=== PATIENT | male | born 1945 | race Caucasian/White ===

== ENCOUNTER 2019-12-19 03:53 | Emergency (ER) | payer OTHER, SELFPAY ==
[2019-12-19 03:53] VITALS: BP 137/79; PULSE 69; RESP 20; TEMP 36.7; O2SAT 98
--- NOTE | 2019-12-19 03:59 | ED.EPISTAXIS ---
HPI - Epistaxis General Chief complaint: Epistaxis Stated complaint: NOSE BLEED Source: patient Mode of arrival: EMS Limitations: no limitations History of Present Illness HPI Narrative: 74 y.o. with hypertension developed bleeding from the right side of his nose at 1 AM after picking at it. Bleeding continued for the next 3 hours. Pt used numerous tissues and paper towels stuffed in the right nostril. He did not pinch the nose. His last nosebleed was over 6 years ago. There was a short period where he felt lighheaded. He denies bruising. Related Data Home Medications Medication Instructions Recorded Confirmed aspirin 325 mg PO DAILY 12/19/19 12/19/19 lisinopril 10 mg PO DAILY 12/19/19 12/19/19 metoprolol tartrate 25 mg PO DAILY 12/19/19 12/19/19 omeprazole 40 mg PO DAILY 12/19/19 12/19/19 potassium chloride 10 meq PO DAILY 12/19/19 12/19/19 simvastatin 10 mg PO HS 12/19/19 12/19/19 Allergies Allergy/AdvReac Type Severity Reaction Status Date / Time No Known Allergies Allergy Verified 12/19/19 04:03 Review of Systems Constitutional: Constitutional: Reports no additional constitutional complaints ENT: Comments: He hacked up blood on several occasions. Cardiovascular: Cardiovascular: Denies chest pain and Denies rapid heart rate Respiratory: Respiratory: Denies dyspnea Gastrointestinal: Gastrointestinal: Denies nausea and Denies vomiting Hematologic/Lymphatic: Hematologic/Lymphatic: Denies easy bruising PMFSH Past Medical History Medical History (Updated 12/19/19 @ 04:58 by Gagan Hightower MD) GERD (gastroesophageal reflux disease) Hyperlipidemia Hypertension PTSD (post-traumatic stress disorder) Surgical History Surgical History (Updated 12/19/19 @ 04:59 by Gagan Hightower MD) History of radiofrequency ablation procedure for cardiac arrhythmia Hx of cholecystectomy Social History Social History (Updated 12/19/19 @ 04:59 by Gagan Hightower MD) Smoking status: Current every day smoker Tobacco type: pipe Exam Narrative: Exam Narrative: Brought on by ambulance with tissue in his right nostril. There is a small amount of blood on the tissue. Hard of hearing. Const: General: no acute distress and alert Orientation/consciousness: patient oriented x3 HENMT: Other: No active bleeding. Right anterior septum has a small, linear red scratch which is not bleeding. No blood or clot in the nose. No posterior oropharyngeal blood. Neck: Neck: no lymphadenopathy Resp: Auscultation: clear to auscultation bilaterally Cardio: Rate: regular rate Rhythm: regular rhythm Heart sounds: no murmurs Skin: Other: Warm and dry. Limited exam of back, chest and arms without ecchymosis. Neuro: General: patient oriented x3 Course Course Emergency Course: Observed in the E.D for an hour. No bleeding. No orthostatic changes. No lightheadedness. Results of CBC reviewed with patient. Vital Signs Vital signs: Vital Signs Temperature 36.7 C 12/19/19 03:53 Pulse Rate 69 12/19/19 03:53 Respiratory Rate 20 12/19/19 03:53 Blood Pressure 137/79 12/19/19 03:53 Pulse Oximetry 98 12/19/19 03:53 Temperature 36.7 C 12/19/19 03:53 Pulse Rate 62 12/19/19 04:26 Respiratory Rate 20 12/19/19 03:53 Blood Pressure 124/76 12/19/19 04:26 Pulse Oximetry 98 12/19/19 03:53 MDM - Epistaxis Lab Data Attestation: I reviewed the patient's lab results. Lab results narrative: no anemia Result diagrams: 12/19/19 04:31 Labs: Lab Results 12/19/19 Range/Units 04:31 WBC 7.6 (4.8-10.8) K/mm3 RBC 4.06 L (4.70-6.10) M/mm3 Hgb 14.3 (12.4-15.3) g/dL Hct 38.8 (37.0-46.0) % MCV 95.6 (78.0-102.0) fL MCH 35.2 H (27.0-31.0) pg MCHC 36.9 H (32.0-36.0) g/dL RDW 11.2 L (11.6-14.4) % Plt Count 171 (150-420) K/mm3 MPV 9.1 (8.7-11.0) fl Discharge Plan Discharge Clinical Impression: Acute anterior epistaxis Patient Disp
[2019-12-19 04:23] VITALS: BP 137/79; PULSE 69
[2019-12-19 04:24] VITALS: BP 144/81; PULSE 67
[2019-12-19 04:26] VITALS: BP 124/76; PULSE 62
[2019-12-19 04:36] LABS: Hematocrit 38.8 % (37.0-46.0); Hemoglobin 14.3 g/dL (12.4-15.3); Mean Corpuscular HGB Conc 36.9 g/dL (32.0-36.0); Mean Corpuscular Hemoglobin 35.2 pg (27.0-31.0); Mean Corpuscular Volume 95.6 fL (78.0-102.0); Mean Platelet Volume 9.1 fl (8.7-11.0); Platelet Count Result 171 K/mm3 (150-420); Red Blood Count 4.06 M/mm3 (4.70-6.10); Red Cell Distribution Width 11.2 % (11.6-14.4); White Blood Count 7.6 K/mm3 (4.8-10.8)
[2019-12-19 04:53] VITALS: BP 134/78; PULSE 69; RESP 20; TEMP 37.1; O2SAT 98
--- NOTE | 2019-12-19 04:55 | PC.NURSE ---
PT TO BE DISCHARGED. WILL BE AWAITING DAYLIGHT TO CALL SISTER FOR A RIDE HOME.
== END 2019-12-19 04:59 | disposition home or self-care (01) ==
PROVIDERS: Emergency Provider Family Medicine
DX: R04.0 Epistaxis (principal); K21.9 Gastro-esophageal reflux disease without esophagitis; E78.5 Hyperlipidemia, unspecified; I10 Essential (primary) hypertension; F17.200 Nicotine dependence, unspecified, uncomplicated
CPT/HCPCS: 36415; 85027; 99283

== ENCOUNTER 2020-10-26 02:48 | Emergency (ER) | payer OTHER, SELFPAY ==
[2020-10-26 03:11] VITALS: BP 139/83; PULSE 69; RESP 20; TEMP 36.8; O2SAT 98
--- NOTE | 2020-10-26 03:18 | ECG_ITS ---
Measurements Intervals [place] Rate: 63 P: 71 NH: 201 QRS: -34 QRSD: 79 T: 64 QT: 372 QTc: 383 Interpretive Statements SINUS RHYTHM LEFT AXIS DEVIATION BORDERLINE AV CONDUCTION DELAY BORDERLINE ST-T WAVE ABNORMALITY- ANTEROLATERAL LEADS BASELINE ARTIFACT- I, II, III, AVL, AVF BORDERLINE ECG Electronically Signed On 10-26-2020 8:05:05 [employer] WORK[employer] by Royce Oliver D.O.
[2020-10-26] MEDS: PANTOPRAZOLE SODIUM IV 40 MG VIAL IV PUSH (03:26)
[2020-10-26] MEDS: MAG HYDROX/ALUMINUM HYD/SIMETH 30 ML, PHENobarb/HYOSCY/ATROPINE/SCOP 32.4 MG, LIDOCAINE... PO (03:26)
--- NOTE | 2020-10-26 03:31 | ED.GENADULT ---
HPI - General Adult General Chief complaint: Abdominal Pain Stated complaint: Heartburn Source: patient Mode of arrival: ambulatory Limitations: no limitations History of Present Illness HPI narrative: This is a 75-year-old patient with a history of chronic reflux disease with some episodes of heartburn has been having increasing heartburn [facility], but the heartburn has persisted and he took his 3rd 1 and had no relief and currently epigastric burning with no fever chills no chest pain no chest tightness no radiation of his heartburn discomfort no shortness of breath no fever chills no nausea vomiting. Onset (ago): day(s) Location: abdomen Radiation: abdomen Severity: moderate Severity scale (1-10): 6 Quality: constant Pain Consistency: constant Related Data Home Medications Medication Instructions Recorded Confirmed aspirin 325 mg PO DAILY 12/19/19 08/02/20 lisinopril 10 mg PO DAILY 12/19/19 08/02/20 metoprolol tartrate 25 mg PO DAILY 12/19/19 08/02/20 omeprazole 40 mg PO DAILY 12/19/19 08/02/20 potassium chloride 10 meq PO DAILY 12/19/19 08/02/20 simvastatin 10 mg PO HS 12/19/19 08/02/20 Allergies Allergy/AdvReac Type Severity Reaction Status Date / Time No Known Allergies Allergy Verified 09/12/20 14:27 Review of Systems Review of Systems: All systems reviewed & are unremarkable except as noted in HPI and below PMFSH Past Medical History Medical History GERD (gastroesophageal reflux disease) Hordeolum externum left lower eyelid Hyperlipidemia Hypertension PTSD (post-traumatic stress disorder) Surgical History Surgical History History of radiofrequency ablation procedure for cardiac arrhythmia Hx of cholecystectomy Social History Social History Smoking status: Current every day smoker Tobacco type: pipe Alcohol intake: current Substance use: never Substance use type: does not use Exam Const: General: no acute distress Orientation/consciousness: patient oriented x3 HENMT: Head: normal to inspection Eyes: Conjunctivae: conjunctivae normal Pupils: Equal, round and reactive pupils present Neck: Neck: normal visual inspection Chest: Chest palpation & inspection: normal inspection of the chest Resp: Effort & Inspection: normal respiratory effort Cardio: Rate: regular rate Rhythm: regular rhythm GI: GI Palp: Yes Soft to palpation and Yes Tenderness to palpation present (GI) ( Epigastric tenderness) : Testes: Testes normal Skin: General skin exam: normal color Rashes: no rashes Neuro: General: patient oriented x3, moves all extremities, no meningeal signs and no focal motor deficits Extrem: General: normal to inspection and no pedal edema Psych: Mental Status: mental status grossly normal Course Course Emergency Course: patient receive IV Protonix and GI cocktail and after reassessment is markedly improved, will send Carafate to his pharmacy and advised to follow-up with his primary care physician at the [facility] as soon as possible for further evaluation and possible endoscopy. Vital Signs Vital signs: Vital Signs Temperature 36.8 C 10/26/20 03:11 Pulse Rate 69 10/26/20 03:11 Respiratory Rate 20 10/26/20 03:11 Blood Pressure 139/83 10/26/20 03:11 Pulse Oximetry 98 10/26/20 03:11 Temperature 36.8 C 10/26/20 03:11 Pulse Rate 69 10/26/20 03:11 Respiratory Rate 20 10/26/20 03:11 Blood Pressure 139/83 10/26/20 03:11 Pulse Oximetry 98 10/26/20 03:11 Medical Decision Making Vital Signs Vital Signs: Vital Signs Temperature 36.8 C 10/26/20 03:11 Pulse Rate 69 10/26/20 03:11 Respiratory Rate 20 10/26/20 03:11 Blood Pressure 139/83 10/26/20 03:11 Pulse Oximetry 98 10/26/20 03:11 Temperature 36.8 C
[2020-10-26 03:36] VITALS: BP 137/87; PULSE 84; RESP 18; TEMP 36.9; O2SAT 97
== END 2020-10-26 03:42 | disposition home or self-care (01) ==
PROVIDERS: Emergency Provider Emergency Medicine; PCP Family Medicine
DX: K21.9 Gastro-esophageal reflux disease without esophagitis (principal); E78.5 Hyperlipidemia, unspecified; I10 Essential (primary) hypertension; F43.10 Post-traumatic stress disorder, unspecified; H00.015 Hordeolum externum left lower eyelid; Z90.49 Acquired absence of other specified parts of digestive tract; F17.290 Nicotine dependence, other tobacco product, uncomplicated
CPT/HCPCS: 93005; 96374; 99283; 99284; A9270; C9113

== ENCOUNTER 2020-11-24 16:12 | Emergency (ER) | payer OTHER, SELFPAY ==
[2020-11-24 16:26] VITALS: BP 118/80; PULSE 71; RESP 20; TEMP 36.7; O2SAT 98
[2020-11-24] MEDS: PANTOPRAZOLE 40 MG TABLET PO (16:40)
[2020-11-24] MEDS: MAG HYDROX/ALUMINUM HYD/SIMETH 30 ML, PHENobarb/HYOSCY/ATROPINE/SCOP 32.4 MG, LIDOCAINE... PO (16:40)
--- NOTE | 2020-11-24 16:54 | ED.ABDPAIN ---
HPI - Abdominal Pain General Chief Complaint: Unspecified Stated Complaint: ACID REFLUX Source: patient Mode of arrival: ambulatory Limitations: no limitations History of Present Illness HPI narrative: this is a 75-year-old gentleman with a history of GERD with epigastric burning was seen approximately 3 weeks ago in the emergency department was given a GI cocktail and sent home with proton pump inhibitors had schedule appointment to see a GI doctor for a endoscopy but epic be a and is currently scheduled for an appointment. Patient is having some epigastric burning and has ran out of his current proton pump inhibitors. There is no chest pain no shortness of breath no fever or chills and no no flank pain no dysuria MD elicited complaint: abdominal pain ( Epigastric burning) Onset (ago): week(s) Pain Consistency: constant Location: epigastric Severity: moderate Quality: burning Radiation: none Migration to: no migration Exacerbating factors: nothing Relieving factors: nothing Related Data Home Medications Medication Instructions Recorded Confirmed aspirin 325 mg PO DAILY 12/19/19 11/24/20 lisinopril 10 mg PO DAILY 12/19/19 11/24/20 metoprolol tartrate 12.5 mg PO DAILY 12/19/19 11/24/20 omeprazole 40 mg PO HS 12/19/19 11/24/20 potassium chloride 10 meq PO DAILY 12/19/19 11/24/20 simvastatin 10 mg PO HS 12/19/19 11/24/20 Allergies Allergy/AdvReac Type Severity Reaction Status Date / Time No Known Allergies Allergy Verified 11/24/20 16:33 Review of Systems Review of Systems: All systems reviewed & are unremarkable except as noted in HPI and below PMFSH Past Medical History Medical History GERD (gastroesophageal reflux disease) Hordeolum externum left lower eyelid Hyperlipidemia Hypertension PTSD (post-traumatic stress disorder) Surgical History Surgical History History of radiofrequency ablation procedure for cardiac arrhythmia Hx of cholecystectomy Social History Social History Smoking status: Current every day smoker Tobacco type: pipe Alcohol intake: current Substance use: never Substance use type: does not use Gender identity (if verbalized by the patient): Male Exam Const: General: no acute distress Orientation/consciousness: patient oriented x3 HENMT: Head: normal to inspection Eyes: Pupils: Equal, round and reactive pupils present EOM: EOMs intact bilaterally Neck: Neck: normal visual inspection, no lymphadenopathy and no meningeal signs Chest: Chest palpation & inspection: normal inspection of the chest Resp: Effort & Inspection: normal respiratory effort Auscultation: clear to auscultation bilaterally Cardio: Rate: regular rate Rhythm: regular rhythm GI: GI Palp: Yes Soft to palpation and Yes Tenderness to palpation present (GI) ( epigastric) Course Course Emergency Course: patient received a GI cocktail and a dose of Protonix p.o. 40 mg, advised to keep his follow-up appointment for his [facility] and to take medicine as prescribed. Vital Signs Vital signs: Vital Signs Temperature 36.7 C 11/24/20 16:26 Pulse Rate 71 11/24/20 16:26 Respiratory Rate 20 11/24/20 16:26 Blood Pressure 118/80 11/24/20 16:26 Pulse Oximetry 98 11/24/20 16:26 Temperature 36.7 C 11/24/20 16:26 Pulse Rate 71 11/24/20 16:26 Respiratory Rate 20 11/24/20 16:26 Blood Pressure 118/80 11/24/20 16:26 Pulse Oximetry 98 11/24/20 16:26 Critical Care Time Critical Care Time Critical Care Time: No Discharge Plan Discharge Clinical Impression: GERD (gastroesophageal reflux disease) Qualifiers: Esophagitis presence: without esophagitis Qualified Code(s): K21.9 - Gastro-esophageal reflux disease without esophagitis Patient Disposition: Home, Self-Care Condition: Stable Instructi
[2020-11-24 17:17] VITALS: BP 100/66; PULSE 69; RESP 20; TEMP 36.7; O2SAT 98
== END 2020-11-24 17:21 | disposition home or self-care (01) ==
PROVIDERS: Emergency Provider Emergency Medicine; PCP Family Medicine
DX: K21.9 Gastro-esophageal reflux disease without esophagitis (principal)
CPT/HCPCS: 99283; A9270

== ENCOUNTER 2021-02-25 12:23 | Emergency (ER) | payer OTHER, SELFPAY ==
[2021-02-25 12:25] VITALS: BP 119/81; PULSE 70; RESP 20; TEMP 36.9; O2SAT 96
--- NOTE | 2021-02-25 12:45 | ED.ABDPAIN ---
HPI - Abdominal Pain General Stated Complaint: HERNIA Source: patient Mode of arrival: ambulatory Limitations: no limitations History of Present Illness HPI narrative: this is a 76-year-old male with a history of hiatal hernia that presents today after he had a sensation of having a few bites of hamburger and is getting stuck in the esophagus, currently doing well does have some reflux burning sensation with no food stuck in his esophagus sensation. Patient does have a history of hiatal hernia and he has some seen his primary care and and his GI doctor approximately 2 years ago. Currently there is no chest pain no shortness of breath no abdominal pain does have a burning sensation in the epigastric area, no fever chills no nausea vomiting no diarrhea constipation. MD elicited complaint: abdominal pain Pertinent past history: other ( hiatal hernia) Onset (ago): hour(s) Pain Consistency: intermittent Location: epigastric ( sensation of food getting stuck) Severity: mild Quality: fullness and burning Radiation: none Migration to: no migration Exacerbating factors: eating Relieving factors: nothing Related Data Home Medications Medication Instructions Recorded Confirmed aspirin 325 mg PO DAILY 12/19/19 11/24/20 lisinopril 10 mg PO DAILY 12/19/19 02/25/21 metoprolol tartrate 12.5 mg PO DAILY 12/19/19 02/25/21 omeprazole 40 mg PO BID 12/19/19 02/25/21 potassium chloride 10 meq PO DAILY 12/19/19 02/25/21 simvastatin 10 mg PO HS 12/19/19 02/25/21 Allergies Allergy/AdvReac Type Severity Reaction Status Date / Time No Known Allergies Allergy Verified 11/24/20 16:33 Review of Systems Review of Systems: All systems reviewed & are unremarkable except as noted in HPI and below PMFSH Past Medical History Medical History GERD (gastroesophageal reflux disease) Hordeolum externum left lower eyelid Hyperlipidemia Hypertension PTSD (post-traumatic stress disorder) Surgical History Surgical History History of radiofrequency ablation procedure for cardiac arrhythmia Hx of cholecystectomy Social History Social History Smoking status: Current every day smoker Tobacco type: pipe Alcohol intake: current Substance use: never Substance use type: does not use Gender identity (if verbalized by the patient): Male Exam Const: General: no acute distress and alert Orientation/consciousness: patient oriented x3 HENMT: Head: normal to inspection Eyes: Conjunctivae: conjunctivae normal Pupils: Equal, round and reactive pupils present Chest: Chest palpation & inspection: normal inspection of the chest Resp: Effort & Inspection: normal respiratory effort Auscultation: clear to auscultation bilaterally Cardio: Rate: regular rate Rhythm: regular rhythm GI: GI Palp: Yes Soft to palpation Percussion: Yes other ( Epigastric tenderness with palpation) : Testes: Testes normal Back/Spine/Pelvis: Back: no CVA tenderness Skin: General skin exam: normal color Rashes: no rashes Extrem: General: normal to inspection and no pedal edema Psych: Mental Status: mental status grossly normal Affect: normal affect Course Course Emergency Course: after reassessment the symptoms have resolved, patient still has some epigastric burning and received GI cocktail. Critical Care Time Critical Care Time Critical Care Time: No Discharge Plan Discharge Clinical Impression: Hiatal hernia Acid reflux Qualifiers: Esophagitis presence: without esophagitis Qualified Code(s): K21.9 - Gastro-esophageal reflux disease without esophagitis Patient Disposition: Home, Self-Care Condition: Stable Instructions: Antibiotic Form, GERD (Gastroesophageal Reflux Disease) (ED) Additional Instructions: advised patient to follow with some GI within the next 2 to
[2021-02-25] MEDS: MAG HYDROX/ALUMINUM HYD/SIMETH 30 ML, PHENobarb/HYOSCY/ATROPINE/SCOP 32.4 MG, LIDOCAINE... PO (12:47)
[2021-02-25 13:04] VITALS: BP 119/81; PULSE 70; RESP 20; TEMP 36.9; O2SAT 96
== END 2021-02-25 13:10 | disposition home or self-care (01) ==
PROVIDERS: Emergency Provider Emergency Medicine
DX: K21.9 Gastro-esophageal reflux disease without esophagitis (principal); E78.5 Hyperlipidemia, unspecified; I10 Essential (primary) hypertension; F17.200 Nicotine dependence, unspecified, uncomplicated
CPT/HCPCS: 99282; 99283; A9270

== ENCOUNTER 2021-07-19 12:37 | Outpatient (NON) | payer OTHER, SELFPAY | END 2021-07-19 12:38 | disposition home or self-care (01) | LOC: CHSLAB 12:39 | PROVIDERS: Visit Provider Nurse Practitioner Family | DX: R30.0 Dysuria (principal) | CPT/HCPCS: 87086 ==

== ENCOUNTER 2021-07-23 19:09 | Emergency (ER) | payer OTHER, SELFPAY ==
[2021-07-23 22:03] VITALS: BP 131/72; PULSE 66; RESP 18; TEMP 36.4; O2SAT 99
[2021-07-23 22:44] LABS: Add Urine Microscopic? YES; Appearance Urine Clear (Clear); Bilirubin Urine Negative (Negative); Blood Urine Negative (Negative); Color Urine Dark Yellow (Yellow); Glucose Urine UA Negative (Negative); Ketones Urine 1+ (Negative); Leukocyte Esterase Ur Negative (Negative); Nitrate Urine Negative (Negative); Protein Urine Negative (Negative); Urobilinogen Urine 0.2 mg/dL (0.2-1.0); pH Urine 6.5 (5.0-8.0)
[2021-07-23 22:48] LABS: Bacteria Urine Trace /hpf; RBC Urine 0-2 /hpf (0-2); WBC Urine 0-3 /hpf (0-3)
--- NOTE | 2021-07-23 23:01 | ED.ABDPAIN ---
HPI - Abdominal Pain General Chief Complaint: Urogenital-Male Stated Complaint: Bladder Inf Time Seen by Provider: 07/23/21 19:11 Source: patient and RN notes reviewed Mode of arrival: ambulatory Limitations: no limitations History of Present Illness HPI narrative: mild persistent dysuria Pertinent past history: past UTI Pain Consistency: intermittent Location: other (dysuria) Severity: mild Pain scale (0-10): 1 Quality: burning Radiation: none Migration to: no migration Exacerbating factors: nothing Relieving factors: medication Associated symptoms: denies other symptoms Related Data Home Medications Medication Instructions Recorded Confirmed lisinopril 10 mg PO DAILY 12/19/19 07/23/21 metoprolol tartrate 12.5 mg PO DAILY 12/19/19 07/23/21 omeprazole 40 mg PO BID 12/19/19 07/23/21 potassium chloride 10 meq PO DAILY 12/19/19 07/23/21 simvastatin 10 mg PO HS 12/19/19 07/23/21 Allergies Allergy/AdvReac Type Severity Reaction Status Date / Time No Known Allergies Allergy Verified 07/23/21 22:00 Review of Systems Review of Systems: All systems reviewed & are unremarkable except as noted in HPI and below Genitourinary: Genitourinary: Reports dysuria PMFSH Past Medical History Medical History GERD (gastroesophageal reflux disease) Hordeolum externum left lower eyelid Hyperlipidemia Hypertension PTSD (post-traumatic stress disorder) Surgical History Surgical History History of radiofrequency ablation procedure for cardiac arrhythmia Hx of cholecystectomy Social History Social History Smoking status: Current every day smoker Tobacco type: pipe Alcohol intake: current Alcohol use details: drinks red wine daily Substance use: never Substance use type: does not use Gender identity (if verbalized by the patient): Male Exam Const: General: no acute distress and alert Nutritional Appearance: well nourished Orientation/consciousness: patient oriented x3 Limitations: no limitations HENMT: Head: normal to inspection Ears: external ears normal and TM's normal bilaterally General nose exam: Normal external nose present and Normal nares present Mouth: Yes lip normal and Yes moist mucous membranes Teeth and gingiva: dentition normal Eyes: Conjunctivae: conjunctivae normal Pupils: Equal, round and reactive pupils present EOM: EOMs intact bilaterally Neck: Neck: normal visual inspection Chest: Chest palpation & inspection: normal inspection of the chest Resp: Effort & Inspection: normal respiratory effort Auscultation: clear to auscultation bilaterally Cardio: Rate: regular rate Rhythm: regular rhythm GI: GI Palp: Yes Soft to palpation and No Tenderness to palpation present (GI) Auscultation: normal bowel sounds : General: Yes bladder normal to palpation and Yes no CVA tenderness Male General Exam: Yes normal external exam Testes: Testes normal Back/Spine/Pelvis: Back: no CVA tenderness Skin: General skin exam: normal color Rashes: no rashes Neuro: General: patient oriented x3, moves all extremities, no meningeal signs, no focal motor deficits and CN's II-XI intact bilaterally Extrem: General: normal to inspection and no pedal edema Psych: Appearance: grossly normal and well kempt Mental Status: mental status grossly normal Affect: normal affect Thought content: Yes Normal thought content present Course Course Emergency Course: Stable pain-free patient. Reevaluation(s) Date: 07/23/21 Time: 22:25 Vital Signs Vital signs: Vital Signs Temperature 36.4 C 07/23/21 22:03 Pulse Rate 66 07/23/21 22:03 Respiratory Rate 18 07/23/21 22:03 Blood Pressure 131/72 07/23/21 22:03 Pulse Oximetry 99 07/23/21 22:03 Temperature 36.4 C 07/23/21 22:03 Pulse Rate 66 07/23/21 23:28 Respirat
[2021-07-23 23:28] VITALS: BP 121/73; PULSE 66; RESP 16; O2SAT 98
== END 2021-07-23 23:30 | disposition home or self-care (01) ==
PROVIDERS: Emergency Provider Emergency Medicine; PCP Nurse Practitioner Family
DX: N39.0 Urinary tract infection, site not specified (principal)
CPT/HCPCS: 81001; 99283

== ENCOUNTER 2021-08-01 13:27 | Emergency (ER) | payer OTHER, SELFPAY ==
[2021-08-01 13:40] VITALS: BP 104/67; PULSE 73; RESP 14; TEMP 36.4; O2SAT 96
--- NOTE | 2021-08-01 14:05 | ED.GENADULT ---
HPI - General Adult General Chief complaint: Unspecified Stated complaint: has a hiatal hernia has a hard time breathing/eati Source: patient Mode of arrival: ambulatory History of Present Illness HPI narrative: Patient with a history of GERD/reflux disease presents today having difficulty with swallowing water with some epigastric discomfort with no abdominal pain no chest pain no shortness of breath. Currently there is no fever chills can swallow solids as well as liquids but has more difficult time with some with swallowing that neutral. Onset (ago): hour(s) Related Data Home Medications Medication Instructions Recorded Confirmed lisinopril 10 mg PO DAILY 12/19/19 07/23/21 metoprolol tartrate 12.5 mg PO DAILY 12/19/19 07/23/21 omeprazole 40 mg PO BID 12/19/19 07/23/21 potassium chloride 10 meq PO DAILY 12/19/19 07/23/21 simvastatin 10 mg PO HS 12/19/19 07/23/21 Allergies Allergy/AdvReac Type Severity Reaction Status Date / Time No Known Allergies Allergy Verified 07/23/21 22:00 Review of Systems Review of Systems: All systems reviewed & are unremarkable except as noted in HPI and below PMFSH Past Medical History Medical History GERD (gastroesophageal reflux disease) Hordeolum externum left lower eyelid Hyperlipidemia Hypertension PTSD (post-traumatic stress disorder) Surgical History Surgical History History of radiofrequency ablation procedure for cardiac arrhythmia Hx of cholecystectomy Social History Social History Smoking status: Current every day smoker Tobacco type: pipe Alcohol intake: current Alcohol use details: drinks red wine daily Substance use: never Substance use type: does not use Gender identity (if verbalized by the patient): Male Exam Const: General: cooperative and healthy appearing HENMT: Head: normal to inspection General nose exam: Normal external nose present Face and sinus: normal facial exam Mouth: Yes Normal oral and palatal mucosa present Teeth and gingiva: dentition normal Eyes: General: appearance normal, both eyes and all related structures Eyelids: eyelids normal Conjunctivae: conjunctivae normal Sclera: sclerae normal Pupils: Equal, round and reactive pupils present Neck: Neck: normal visual inspection Chest: Chest palpation & inspection: normal inspection of the chest and localized rib tenderness with anteroposterior compression Resp: Effort & Inspection: normal respiratory effort Cardio: Jugular venous distension: no JVD Palpation: normal PMI Rate: regular rate Rhythm: regular rhythm GI: Inspection: normal to inspection Percussion: Yes normal to percussion Auscultation: normal bowel sounds Back/Spine/Pelvis: Back: no CVA tenderness Skin: General skin exam: normal color and no rashes or lesions noted Neuro: General: oriented to person, oriented to place, oriented to time, patient oriented x3 and gait normal Psych: Appearance: grossly normal and well kempt Course Course Emergency Course: GI cocktail was given, and advised patient follow-up with his primary care physician for referral to GI. Critical Care Time Critical Care Time Critical Care Time: No Discharge Plan Discharge Clinical Impression: Hiatal hernia GERD (gastroesophageal reflux disease) Qualifiers: Esophagitis presence: esophagitis presence not specified Qualified Code(s): K21.9 - Gastro-esophageal reflux disease without esophagitis Dysphagia Qualifiers: Dysphagia type: unspecified Qualified Code(s): R13.10 - Dysphagia, unspecified Patient Disposition: Home, Self-Care Condition: Stable Instructions: Antibiotic Form, Dysphagia (ED), Esophageal Spasm (ED) Additional Instructions: advised to continue current medication, and call primary care physician at the [facility] for referral to
[2021-08-01] MEDS: MAG HYDROX/ALUMINUM HYD/SIMETH 30 ML, PHENobarb/HYOSCY/ATROPINE/SCOP 32.4 MG, LIDOCAINE... PO (14:26)
[2021-08-01 14:30] VITALS: BP 121/67; PULSE 70; RESP 14; O2SAT 96
== END 2021-08-01 14:45 | disposition home or self-care (01) ==
PROVIDERS: Emergency Provider Emergency Medicine; PCP Nurse Practitioner Family
DX: K44.9 Diaphragmatic hernia without obstruction or gangrene (principal); K21.9 Gastro-esophageal reflux disease without esophagitis; R13.10 Dysphagia, unspecified; E78.5 Hyperlipidemia, unspecified; I10 Essential (primary) hypertension; F17.200 Nicotine dependence, unspecified, uncomplicated
CPT/HCPCS: 99282; 99283; A9270

== ENCOUNTER 2021-08-16 08:33 | Emergency (ER) | payer OTHER, SELFPAY ==
[2021-08-16 08:42] VITALS: BP 114/73; PULSE 66; RESP 20; TEMP 36.2; O2SAT 98
--- NOTE | 2021-08-16 09:01 | ED.MALEGU ---
HPI - Male Genitourinary General Chief complaint: Urogenital-Male Stated complaint: urinary tract infection Time Seen by Provider: 08/16/21 09:01 Source: patient Mode of arrival: ambulatory Limitations: no limitations History of Present Illness HPI Narrative: 76-year-old man comes in today complaining of 1 week of burning in his penis. Patient states that he has had similar symptoms and been treated twice in the last month once with Macrobid and once with Keflex. He states the burning is not only when he urinates. He has had no blood in his urine, back pain, nausea, vomiting, fever, flank pain or abdominal pain. He states he had a similar episodes 4 years ago that went away after taking an antibiotic that he does not recall. He has had no new sexual partners. MD Complaint: other ( Penile burning) Onset (ago): week(s) (1) Duration: constant Location: penis Severity: moderate Quality: burning Relieving factors: none Exacerbating factors: none Associated symptoms: Reports denies other symptoms Related Data Sexually active: No Home Medications Medication Instructions Recorded Confirmed lisinopril 10 mg PO DAILY 12/19/19 08/16/21 metoprolol tartrate 12.5 mg PO DAILY 12/19/19 08/16/21 omeprazole 40 mg PO BID 12/19/19 08/16/21 potassium chloride 10 meq PO DAILY 12/19/19 08/16/21 simvastatin 10 mg PO HS 12/19/19 08/16/21 Allergies Allergy/AdvReac Type Severity Reaction Status Date / Time No Known Allergies Allergy Verified 08/16/21 08:46 Review of Systems Review of Systems: All systems reviewed & are unremarkable except as noted in HPI and below Constitutional: Constitutional: Denies chills and Denies fever(s) Respiratory: Respiratory: Denies cough and Denies dyspnea Gastrointestinal: Gastrointestinal: Denies abdominal pain, Denies nausea and Denies vomiting Genitourinary: Genitourinary: Reports as per HPI, Denies hematuria, Denies dysuria and Denies urinary frequency Musculoskeletal: Musculoskeletal: Denies back pain, Denies arthralgias and Denies joint swelling Integumentary/Breasts: Skin/Breast: Denies pruritus, Denies erythema and Denies rash Neurologic: Denies vertigo, Denies dizziness and Denies syncope [facility] Past Medical History Medical History GERD (gastroesophageal reflux disease) Hordeolum externum left lower eyelid Hyperlipidemia Hypertension PTSD (post-traumatic stress disorder) Surgical History Surgical History History of radiofrequency ablation procedure for cardiac arrhythmia Hx of cholecystectomy Social History Social History Smoking status: Current every day smoker Tobacco type: pipe Alcohol intake: current Alcohol use details: drinks red wine daily Substance use: never Substance use type: does not use Gender identity (if verbalized by the patient): Male Exam Const: General: no acute distress and alert Limitations: no limitations HENMT: Mouth: Yes moist mucous membranes Throat: posterior oropharynx normal Resp: Effort & Inspection: normal respiratory effort and not labored Auscultation: clear to auscultation bilaterally, no rales, no rhonchi and no wheezes Cardio: Rate: regular rate Rhythm: regular rhythm Heart sounds: no murmurs GI: GI Palp: Yes Soft to palpation, No Tenderness to palpation present (GI), No Guarding due to palpation present (GI) and No Hernia present Skin: General skin exam: normal color, no jaundice and no pallor Rashes: no rashes Neuro: General: patient oriented x3, moves all extremities and no focal motor deficits Speech: normal speech Gait exam (Neuro): Normal gait present Extrem: General: normal to inspection and no clubbing, cyanosis or edema Psych: Appearance: grossly normal and well kempt Mental Status: mental status grossly normal Affect: normal affect At
--- NOTE | 2021-08-16 09:01 | PC.NURSE ---
Pt attempted to urinate without success. Pt states he went before coming. RN provided pt with water.
--- NOTE | 2021-08-16 09:35 | PC.NURSE ---
Pt attempted to urinate x 2 still unable to go. Pt provided water. Pt states Man this is embarrasing RN informed pt that no need to stress we will get a sample soon and test for infection. Pt verbalized understanding.
[2021-08-16 10:37] LABS: Appearance Urine Clear (Clear); Bilirubin Urine 1+ (Negative); Blood Urine Negative (Negative); Glucose Urine UA Negative (Negative); Ketones Urine Trace (Negative); Leukocyte Esterase Ur Trace (Negative); Nitrate Urine Positive (Negative); Protein Urine Trace (Negative); pH Urine 7.5 (5.0-8.0)
[2021-08-16 10:44] LABS: Add Urine Microscopic? YES; Bacteria Urine 1+ /hpf; Color Urine Dark Orange (Yellow); Mucus Urine Few /lpf; RBC Urine None seen /hpf (0-2); Squamous Epithelial Cell Urine Few /hpf (Few); WBC Urine 0-3 /hpf (0-3)
[2021-08-16 11:07] VITALS: BP 117/69; PULSE 59; RESP 16; O2SAT 100
== END 2021-08-16 11:05 | disposition home or self-care (01) ==
PROVIDERS: Emergency Provider Emergency Medicine
DX: N39.0 Urinary tract infection, site not specified (principal); K21.9 Gastro-esophageal reflux disease without esophagitis; E78.5 Hyperlipidemia, unspecified; I10 Essential (primary) hypertension; F17.200 Nicotine dependence, unspecified, uncomplicated
CPT/HCPCS: 81001; 87086; 87088; 99283

== ENCOUNTER 2021-10-04 13:13 | Emergency (ER) | payer OTHER, SELFPAY ==
[2021-10-04 13:15] VITALS: BP 118/67; PULSE 74; RESP 20; O2SAT 97
--- NOTE | 2021-10-04 14:27 | PC.NURSE ---
water given to pt, unable to urinate
--- NOTE | 2021-10-04 15:25 | PC.NURSE ---
Pt still unable to urinate, pt has drank 240 x3.
[2021-10-04 15:49] LABS: Appearance Urine Clear (Clear); Bilirubin Urine Negative (Negative); Blood Urine Negative (Negative); Glucose Urine UA Trace (Negative); Ketones Urine Trace (Negative); Leukocyte Esterase Ur Negative (Negative); Nitrate Urine Positive (Negative); Protein Urine 1+ (Negative); Specific Grav Ur >= 1.030 (1.010-1.020)
[2021-10-04 15:56] LABS: Add Urine Microscopic? YES; Color Urine Dark Orange (Yellow); RBC Urine 0-2 /hpf (0-2); WBC Urine 0-3 /hpf (0-3)
[2021-10-04 15:57] LABS: Bacteria Urine Trace /hpf; Squamous Epithelial Cell Urine Rare /hpf (Few)
--- NOTE | 2021-10-04 15:59 | ED.MALEGU ---
HPI - Male Genitourinary General Chief complaint: Urogenital-Male Stated complaint: Possible UTI/ Osborne when urinating Time Seen by Provider: 10/04/21 13:15 Source: patient and RN notes reviewed Mode of arrival: ambulatory Limitations: no limitations History of Present Illness HPI Narrative: increasing dysuria Complaint: dysuria Onset (ago): day(s) (1) Duration: constant Location: penis Severity: mild Severity scale (1-10): 3 Quality: burning Relieving factors: none Exacerbating factors: none Context: other (none) Associated symptoms: Reports denies other symptoms Related Data Home Medications Medication Instructions Recorded Confirmed lisinopril 10 mg PO DAILY 12/19/19 10/04/21 metoprolol tartrate 12.5 mg PO DAILY 12/19/19 10/04/21 omeprazole 40 mg PO BID 12/19/19 10/04/21 potassium chloride 10 meq PO DAILY 12/19/19 10/04/21 simvastatin 10 mg PO HS 12/19/19 10/04/21 Allergies Allergy/AdvReac Type Severity Reaction Status Date / Time No Known Allergies Allergy Verified 08/16/21 08:46 Review of Systems Review of Systems: All systems reviewed & are unremarkable except as noted in HPI and below Genitourinary: Genitourinary: Reports dysuria PMFSH Past Medical History Medical History Dysuria GERD (gastroesophageal reflux disease) Hordeolum externum left lower eyelid Hyperlipidemia Hypertension PTSD (post-traumatic stress disorder) Surgical History Surgical History History of radiofrequency ablation procedure for cardiac arrhythmia Hx of cholecystectomy Social History Social History Smoking status: Current every day smoker Tobacco type: pipe Alcohol intake: current Alcohol use details: drinks red wine daily Substance use: never Substance use type: does not use Gender identity (if verbalized by the patient): Male Exam Const: General: cooperative, healthy appearing and well developed Nutritional Appearance: well nourished Orientation/consciousness: patient oriented x3 Limitations: no limitations HENMT: Head: normocephalic and atraumatic Ears: hearing grossly normal bilaterally, external ears normal, TM's normal bilaterally and EAC's normal General nose exam: Normal external nose present and Normal nares present Face and sinus: normal facial exam and sinuses nontender Mouth: Yes Normal oral and palatal mucosa present, Yes lip normal, Yes oropharynx normal and Yes moist mucous membranes Eyes: General: appearance normal, both eyes and all related structures Visual Roberts: normal visual roberts by confrontation Eyelids: eyelids normal Conjunctivae: conjunctivae normal Sclera: sclerae normal Cornea: corneas normal Pupils: Equal, round and reactive pupils present EOM: EOMs intact bilaterally Direct Ophthalmoscopy: normal light reflex Neck: Neck: full ROM and no lymphadenopathy Chest: Chest palpation & inspection: normal inspection of the chest Resp: Effort & Inspection: normal respiratory effort and able to speak in complete sentences Auscultation: clear to auscultation bilaterally Cardio: Jugular venous distension: no JVD Rate: regular rate Rhythm: regular rhythm Peripheral pulses: Peripheral pulses 2+ throughout GI: Inspection: normal to inspection GI Palp: No abdominal tenderness Auscultation: normal bowel sounds : General: Yes bladder normal to palpation and Yes no CVA tenderness Back/Spine/Pelvis: Back: no CVA tenderness Thoracic/Lumbar Spine: thoracic and lumbar spine normal to inspection and thoraco-lumbar ROM normal Skin: General skin exam: normal color and turgor normal Neuro: General: patient oriented x3, gait normal, no meningeal signs, no focal motor deficits and CN's II-XI intact bilaterally Cranial nerves: Yes CN's II-XII intact bilaterally, Yes Equal, round and reactive pupils present,
[2021-10-04 16:07] VITALS: BP 117/69; PULSE 76; RESP 20; TEMP 36.3; O2SAT 97
== END 2021-10-04 16:09 | disposition home or self-care (01) ==
PROVIDERS: Emergency Provider Emergency Medicine
DX: N39.0 Urinary tract infection, site not specified (principal); K21.9 Gastro-esophageal reflux disease without esophagitis; E78.5 Hyperlipidemia, unspecified; I10 Essential (primary) hypertension; F17.200 Nicotine dependence, unspecified, uncomplicated
CPT/HCPCS: 81001; 99283

== ENCOUNTER 2021-10-13 09:38 | Emergency (ER) | payer OTHER, SELFPAY ==
[2021-10-13 09:55] VITALS: BP 122/71; PULSE 68; RESP 16; TEMP 36.1; O2SAT 98
--- NOTE | 2021-10-13 10:00 | PC.NURSE ---
Urine taken to lab.
--- NOTE | 2021-10-13 10:07 | ED_ITS ---
HPI - Nausea/Vomiting/Diarrhea General Chief complaint: Nausea/Vomiting/Diarrhea Stated complaint: urinary infection/not feeling well Time Seen by Provider: 10/13/21 10:00 Related Data Home Medications Medication Instructions Recorded Confirmed lisinopril 10 mg PO DAILY 12/19/19 10/13/21 metoprolol tartrate 12.5 mg PO DAILY 12/19/19 10/13/21 omeprazole 40 mg PO BID 12/19/19 10/13/21 potassium chloride 10 meq PO DAILY 12/19/19 10/13/21 simvastatin 10 mg PO HS 12/19/19 10/13/21 Allergies Allergy/AdvReac Type Severity Reaction Status Date / Time No Known Allergies Allergy Verified 10/13/21 10:00 [facility] Past Medical History Medical History Dysuria GERD (gastroesophageal reflux disease) Hordeolum externum left lower eyelid Hyperlipidemia Hypertension PTSD (post-traumatic stress disorder) Surgical History Surgical History History of radiofrequency ablation procedure for cardiac arrhythmia Hx of cholecystectomy Social History Social History Smoking status: Current every day smoker Tobacco type: pipe Alcohol intake: current Alcohol use details: drinks red wine daily Substance use: never Substance use type: does not use Gender identity (if verbalized by the patient): Male Course Vital Signs Vital signs: Vital Signs Temperature 36.1 C L 10/13/21 09:55 Pulse Rate 68 10/13/21 09:55 Respiratory Rate 16 10/13/21 09:55 Blood Pressure 122/71 10/13/21 09:55 Pulse Oximetry 98 10/13/21 09:55 Temperature 36.1 C L 10/13/21 09:55 Pulse Rate 68 10/13/21 09:55 Respiratory Rate 16 10/13/21 09:55 Blood Pressure 122/71 10/13/21 09:55 Pulse Oximetry 98 10/13/21 09:55 Discharge Plan Discharge Prescriptions: No Action simvastatin 10 mg Tablet 10 mg PO HS RF: 0 potassium chloride 10 mEq Tablet Extended Release 10 meq PO DAILY RF: 0 lisinopril 10 mg Tablet 10 mg PO DAILY RF: 0 metoprolol tartrate 25 mg Tablet 12.5 mg PO DAILY RF: 0 omeprazole 40 mg PO BID RF: 0
[2021-10-13 10:11] LABS: Add Urine Microscopic? NO; Appearance Urine Clear (Clear); Bilirubin Urine Negative (Negative); Blood Urine Negative (Negative); Color Urine Yellow (Yellow); Glucose Urine UA Negative (Negative); Ketones Urine Negative (Negative); Leukocyte Esterase Ur Negative LEU/UL (Negative); Nitrate Urine Negative (Negative); Protein Urine Negative (Negative); Specific Grav Ur 1.015 (1.010-1.020); Urobilinogen Urine 0.2 mg/dL (0.2-1.0); pH Urine 7.5 (5.0-8.0)
--- NOTE | 2021-10-13 10:21 | ED.MALEGU ---
HPI - Male Genitourinary General Chief complaint: Nausea/Vomiting/Diarrhea Stated complaint: urinary infection/not feeling well Time Seen by Provider: 10/13/21 10:00 Source: patient and RN notes reviewed Mode of arrival: ambulatory Limitations: no limitations History of Present Illness Complaint: dysuria Onset (ago): week(s) (2) Duration: constant Location: penis Severity: moderate Quality: burning Exacerbating factors: urination Associated symptoms: Reports nausea/vomiting (nausea only) Related Data Sexually active: No Home Medications Medication Instructions Recorded Confirmed lisinopril 10 mg PO DAILY 12/19/19 10/13/21 metoprolol tartrate 12.5 mg PO DAILY 12/19/19 10/13/21 omeprazole 40 mg PO BID 12/19/19 10/13/21 potassium chloride 10 meq PO DAILY 12/19/19 10/13/21 simvastatin 10 mg PO HS 12/19/19 10/13/21 Allergies Allergy/AdvReac Type Severity Reaction Status Date / Time No Known Allergies Allergy Verified 10/13/21 10:00 Review of Systems Review of Systems: All systems reviewed & are unremarkable except as noted in HPI and below Constitutional: Constitutional: Denies chills and Denies fever(s) Genitourinary: Genitourinary: Denies penile discharge [facility] Past Medical History Medical History Dysuria GERD (gastroesophageal reflux disease) Hordeolum externum left lower eyelid Hyperlipidemia Hypertension PTSD (post-traumatic stress disorder) Surgical History Surgical History History of radiofrequency ablation procedure for cardiac arrhythmia Hx of cholecystectomy Social History Social History Smoking status: Current every day smoker Tobacco type: pipe Alcohol intake: current Alcohol use details: drinks red wine daily Substance use: never Substance use type: does not use Gender identity (if verbalized by the patient): Male Exam Const: General: healthy appearing, no acute distress and alert Orientation/consciousness: patient oriented x3 HENMT: Head: normal to inspection General nose exam: Normal external nose present Face and sinus: normal facial exam Eyes: Conjunctivae: conjunctivae normal Pupils: Equal, round and reactive pupils present EOM: EOMs intact bilaterally Neck: Neck: normal visual inspection Resp: Effort & Inspection: normal respiratory effort Auscultation: clear to auscultation bilaterally Cardio: Rate: regular rate Rhythm: regular rhythm GI: GI Palp: Yes Soft to palpation and No Tenderness to palpation present (GI) Auscultation: normal bowel sounds Back/Spine/Pelvis: Cervical Spine: cervical ROM normal Thoracic/Lumbar Spine: thoraco-lumbar ROM normal Skin: General skin exam: normal color Neuro: General: patient oriented x3, moves all extremities, no meningeal signs and no focal motor deficits Extrem: General: normal to inspection and no clubbing, cyanosis or edema Psych: Appearance: grossly normal and well kempt Mental Status: mental status grossly normal Affect: normal affect Attitude: cooperative Thought content: Yes Normal thought content present Course Vital Signs Vital signs: Vital Signs Temperature 36.1 C L 10/13/21 09:55 Pulse Rate 68 10/13/21 09:55 Respiratory Rate 16 10/13/21 09:55 Blood Pressure 122/71 10/13/21 09:55 Pulse Oximetry 98 10/13/21 09:55 Temperature 36.1 C L 10/13/21 09:55 Pulse Rate 68 10/13/21 09:55 Respiratory Rate 16 10/13/21 09:55 Blood Pressure 122/71 10/13/21 09:55 Pulse Oximetry 98 10/13/21 09:55 MDM - Male Genitourinary Lab Data Attestation: I reviewed the patient's lab results. Labs: Lab Results 10/13/21 Range/Units 10:09 Urine Color Yellow (Yellow) Urine Appearance Clear (Clear) Urine pH 7.5 (5.0-8.0) Ur Specific [place] 1.015 (1.010-1.020) Urine Protein Negative (Negative)
== END 2021-10-13 10:39 | disposition home or self-care (01) ==
PROVIDERS: Emergency Provider Emergency Medicine; PCP Nurse Practitioner Family
DX: N34.2 Other urethritis (principal)
CPT/HCPCS: 81003; 99283

== ENCOUNTER 2022-01-24 12:57 | Emergency (ER) | payer OTHER, SELFPAY ==
--- NOTE | ~2022-01-24 | CT_ITS ---
EXAMINATION: CT soft tiss neck [facility] DATE: 01/24/2022 14:44 INDICATION: Chronic difficulty swallowing. TECHNIQUE: Computed tomography (CT) of the neck, chest, and abdomen was performed without intravenous contrast. Automated exposure control and iterative reconstruction technique were employed. The dose- length product was 806.78 mGy-cm. COMPARISON: None FINDINGS: CT NECK: There are no pathologically enlarged lymph nodes. There is calcified atherosclerosis of the proximal internal carotid arteries. The pharynx and larynx are normal. There are likely changes of oc ular lens replacement surgeries. There is mucosal thickening in the paranasal sinuses. There is thick ening sclerosis of the cormier of left maxillary sinus, consistent with chronic sinusitis. There is mod erate cervical spondylosis. CT CHEST: There is mild dependent atelectasis bilaterally. No pleural effusion. There is left atrial enlargement of the heart. No pericardial effusion. There are coronary artery calcifications. There is mild bilateral gynecomastia. The esophagus is unremarkable. There is mild thoracic spondylosis. Ther e is mild chronic height loss of T6, T7, and T8 vertebral bodies. CT ABDOMEN: The liver and spleen are normal. There are changes of cholecystectomy. The pancreas, adre nal glands, and right kidney are normal. There is a 3.4 cm cyst in left kidney. There are parenchymal calcifications in left kidney with focal volume loss. There are no dilated loops of bowel. There are no pathologically enlarged lymph nodes. There is no free intraperitoneal fluid. There is mild lumbar spondylosis. IMPRESSION: 1. No etiology for the patient's symptoms. Reviewed, dictated and finalized at location A.
[2022-01-24 13:30] VITALS: BP 123/71; PULSE 65; RESP 20; TEMP 36.9; O2SAT 98
--- NOTE | 2022-01-24 13:46 | ECG_ITS ---
Measurements Intervals [place] Rate: 63 P: 58 VA: 197 QRS: -28 QRSD: 97 T: 34 QT: 411 QTc: 422 Interpretive Statements SINUS RHYTHM DELAYED PRECORDIAL R/S TRANSITION CONSIDER INFERIOR INFARCT, AGE INDETERMINATE BORDERLINE T WAVE ABNORMALITY- ANTERIOR LEADS ABNORMAL ECG Electronically Signed On 01-24-2022 17:21:14 CDT by Royce Oliver D.O.
[2022-01-24 14:01] LABS: Basophils Absolute Auto 0.06 K/mm3 (0.00-0.10); Basophils Percent Auto 0.7 % (0.0-1.0); Eosinophils Absolute Auto 0.55 K/mm3 (0.02-0.50); Hematocrit 39.1 % (37.0-46.0); Immature Granulocyte Absolute 0.02 K/mm3 (0.00-0.00); Immature Granulocyte Percent A 0.2 % (0.0-0.0); Lymphocytes Absolute Auto 1.61 K/mm3 (1.10-4.50); Lymphocytes Percent Auto 17.6 % (18.0-42.0); Mean Corpuscular HGB Conc 35.8 g/dL (32.0-36.0); Mean Corpuscular Hemoglobin 34.7 pg (27.0-31.0); Mean Platelet Volume 9.1 fl (8.7-11.0); Monocytes Absolute Auto 0.86 K/mm3 (0.10-0.90); Monocytes Percent Auto 9.4 % (2.0-11.0); Neutrophils Absolute Auto 6.1 K/mm3 (1.7-7.2); Neutrophils Percent Auto 66.1 % (50.0-70.0); Platelet Count Result 196 K/mm3 (150-420); Red Blood Count 4.03 M/mm3 (4.70-6.10); Red Cell Distribution Width 12.1 % (11.6-14.4); White Blood Count 9.2 K/mm3 (4.8-10.8)
[2022-01-24] MEDS: MAG HYDROX/ALUMINUM HYD/SIMETH 30 ML, PHENobarb/HYOSCY/ATROPINE/SCOP 32.4 MG, LIDOCAINE... PO (14:16)
[2022-01-24 14:23] LABS: Alanine Aminotransferase 43 U/L (16-63); Albumin Level 3.7 g/dL (3.4-5.0); Alkaline Phosphatase 61 U/L (46-116); Anion Gap 7 mmol/L (8-16); Aspartate Amino Transferase 34 U/L (15-37); Bilirubin,Total 0.8 mg/dL (0.00-1.00); Blood Urea Nitrogen 9 mg/dL (7-18); Calcium 8.9 mg/dL (8.5-10.1); Carbon Dioxide 27 mmol/L (21-32); Chloride 94 mmol/L (98-108); Estimated Glomerular Filt Rate > 60; Glucose 102 mg/dL (70-99); Lipase 84 U/L (73-393); Osmolality Calculated 264 mOsm/kg (285-295); Potassium 3.3 mmol/L (3.5-5.1); Sodium 128 mmol/L (136-145); Total Protein 6.8 g/dL (6.4-8.2)
[2022-01-24] MEDS: SODIUM CHLORIDE 0.9% IV 500 ML 999 ML IV CONT (14:23)
[2022-01-24] MEDS: ONDANSETRON INJ 4 MG/2 ML VIAL IV PUSH (14:23)
[2022-01-24] MEDS: PANTOPRAZOLE SODIUM IV 40 MG VIAL IV PUSH (14:25)
[2022-01-24 14:26] LABS: Troponin I 5.4 ng/L (0.00-60.4)
[2022-01-24] MEDS: POTASSIUM CHLORIDE 20 MEQ TABLET PO (15:04)
--- NOTE | 2022-01-24 15:22 | ED.GENADULT ---
HPI - General Adult General Chief complaint: Unspecified Stated complaint: Sob/ hiatal hernia/ Cant swallow Time Seen by Provider: 01/24/22 12:59 Source: patient and RN notes reviewed Mode of arrival: ambulatory Limitations: no limitations History of Present Illness HPI narrative: difficulty swallowing and epigastric burning Onset (ago): day(s) (2) Location: abdomen Severity: mild Severity scale (1-10): 4 Quality: burning and dull Pain Consistency: constant Relieving factors: none Exacerbating factors: none Associated symptoms: nausea/vomiting Related Data Home Medications Medication Instructions Recorded Confirmed lisinopril 10 mg tablet 10 mg PO DAILY 12/19/19 01/24/22 metoprolol tartrate 25 mg tablet 12.5 mg PO DAILY 12/19/19 01/24/22 omeprazole 40 mg PO BID 12/19/19 01/24/22 potassium chloride 10 mEq 10 meq PO DAILY 12/19/19 01/24/22 tablet,extended release simvastatin 10 mg tablet 10 mg PO HS 12/19/19 01/24/22 Allergies Allergy/AdvReac Type Severity Reaction Status Date / Time No Known Allergies Allergy Verified 11/07/21 12:16 Review of Systems Review of Systems: All systems reviewed & are unremarkable except as noted in HPI and below Constitutional: Constitutional: Reports no additional constitutional complaints Eyes: Eyes: Reports no additional eye complaints ENT: Reports system reviewed and no additional complaints, except as documented Cardiovascular: Cardiovascular: Reports no additional cardiovascular complaints Respiratory: Respiratory: Reports no additional respiratory complaints Gastrointestinal: Gastrointestinal: Reports no additional gastrointestinal complaints Musculoskeletal: Musculoskeletal: Reports no additional musculoskeletal complaints Integumentary/Breasts: Skin/Breast: Reports system reviewed and no additional complaints, except as docu Neurologic: Reports system reviewed and no additional complaints, except as documented Psychiatric: Psychiatric: Reports no additional psychiatric complaints Endocrine: Endocrine: Reports no additional endocrine complaints Hematologic/Lymphatic: Hematologic/Lymphatic: Reports no additional hematologic/lymphatic complaints Allergic/Immunologic: Allergic/Immunologic: Reports no additional allergic/immunologic complaints [facility] Past Medical History Medical History Dysuria GERD (gastroesophageal reflux disease) Hordeolum externum left lower eyelid Hyperlipidemia Hypertension PTSD (post-traumatic stress disorder) Surgical History Surgical History History of radiofrequency ablation procedure for cardiac arrhythmia Hx of cholecystectomy Social History Social History Smoking status: Current every day smoker Tobacco type: pipe Alcohol intake: current Alcohol use details: drinks red wine daily Substance use: never Substance use type: does not use Gender identity (if verbalized by the patient): Male Exam Const: General: healthy appearing and no acute distress Nutritional Appearance: well nourished Orientation/consciousness: patient oriented x3 Limitations: no limitations HENMT: Head: normal to inspection Ears: external ears normal, TM's normal bilaterally and EAC's normal General nose exam: Normal external nose present and Normal nares present Face and sinus: normal facial exam and sinuses nontender Mouth: Yes Normal oral and palatal mucosa present and Yes moist mucous membranes Teeth and gingiva: dentition normal Throat: posterior oropharynx normal Eyes: Conjunctivae: conjunctivae normal Pupils: Equal, round and reactive pupils present EOM: EOMs intact bilaterally Neck: Neck: normal visual inspection, no lymphadenopathy and no meningeal signs Chest: Chest palpation & inspection: normal inspection of the chest Resp: Effort & Inspection: cora
[2022-01-24 15:58] VITALS: BP 120/70; PULSE 78; RESP 20; TEMP 36.3; O2SAT 97
== END 2022-01-24 16:00 | disposition home or self-care (01) ==
PROVIDERS: Emergency Provider Emergency Medicine
DX: K21.9 Gastro-esophageal reflux disease without esophagitis (principal); K44.9 Diaphragmatic hernia without obstruction or gangrene; E78.5 Hyperlipidemia, unspecified; I10 Essential (primary) hypertension; F17.290 Nicotine dependence, other tobacco product, uncomplicated
CPT/HCPCS: 36415; 70490; 71250; 74150; 80053; 83690; 84484; 85025; 93005; 96361; 96374; 96375; 99284; A9270; C9113; J2405; J7040

== ENCOUNTER 2022-04-04 08:47 | Emergency (ER) | payer OTHER, SELFPAY ==
[2022-04-04 09:11] VITALS: BP 151/81; PULSE 68; RESP 18; TEMP 36.4; O2SAT 97
--- NOTE | 2022-04-04 09:40 | ED.GENADULT ---
HPI - General Adult General Chief complaint: Abdominal Pain Stated complaint: hernia pain History of Present Illness HPI narrative: the patient is a 77-year-old male with history of hypertension, hiatal hernia, hyperlipidemia, PTSD, and GERD. For the last 20 years, the patient has had intermittent right groin discomfort, with an occasional bulge in that region. He has been recently diagnosed with a right inguinal hernia by a physician friend of his who is retired. He comes here for further evaluation. The hernia is not causing him pain or discomfort at present. The hernia is not protruding and is not incarcerated. No nausea vomiting or change in his bowel habits. No other complaints at present. Related Data Home Medications Medication Instructions Recorded Confirmed lisinopril 10 mg tablet 10 mg PO DAILY 12/19/19 04/04/22 metoprolol tartrate 25 mg tablet 12.5 mg PO DAILY 12/19/19 04/04/22 omeprazole 40 mg PO BID 12/19/19 04/04/22 potassium chloride 10 mEq 10 meq PO DAILY 12/19/19 04/04/22 tablet,extended release simvastatin 10 mg tablet 10 mg PO HS 12/19/19 04/04/22 Allergies Allergy/AdvReac Type Severity Reaction Status Date / Time No Known Allergies Allergy Verified 04/04/22 09:16 Review of Systems Review of Systems: All systems reviewed & are unremarkable except as noted in HPI and below Constitutional: Constitutional: Reports no additional constitutional complaints, Denies anorexia, Denies body ache(s), Denies chills, Denies excessive sweating, Denies fatigue, Denies fever(s), Denies frequent falls, Denies headache(s), Denies malaise and Denies poor appetite Eyes: Eyes: Reports no additional eye complaints, Denies blurry vision, Denies change in vision, Denies irritation, Denies itchy eyes and Denies photophobia ENT: Reports system reviewed and no additional complaints, except as documented, Reports Normal hearing present, Denies change in voice, Denies dysphagia, Denies vertigo, Denies dizziness, Denies ear discharge, Denies headache(s), Denies hearing loss, Denies hoarseness, Denies nasal congestion, Denies neck pain, Denies sinus pressure, Denies sore throat and Denies throat swelling Cardiovascular: Cardiovascular: Reports no additional cardiovascular complaints, Denies chest pain, Denies syncope, Denies rapid heart rate, Denies irregular heart rhythm, Denies leg edema, Denies dyspnea and Denies slow heart rate Respiratory: Respiratory: Reports no additional respiratory complaints, Denies cough, Denies dyspnea, Denies stridor and Denies wheezing Gastrointestinal: Gastrointestinal: Reports no additional gastrointestinal complaints, Denies abdominal pain, Denies melena, Denies hematochezia, Denies dysphagia, Denies diarrhea, Denies nausea and Denies vomiting Genitourinary: Genitourinary: Denies hematuria, Denies oliguria, Denies dysuria, Denies flank pain, Denies urinary frequency and Denies urinary urgency Musculoskeletal: Musculoskeletal: Reports no additional musculoskeletal complaints, Denies abnormal gait, Denies back pain, Denies myalgias, Denies arthralgias, Denies joint swelling, Denies limited range of motion, Denies muscle cramps, Denies muscle weakness, Denies neck pain and Denies numbness Integumentary/Breasts: Skin/Breast: Reports system reviewed and no additional complaints, except as docu, Denies breast pain, Denies change in pigmentation, Denies pruritus, Denies erythema and Denies wounds Neurologic: Reports system reviewed and no additional complaints, except as documented, Reports Normal hearing present, Denies Abnormal speech present, Denies abnormal gait, Denies confusion, Denies vertigo, Denies dizziness, Denies syncope, Denies frequent falls, Denies headache(s), Denies focal weakness, Denies numbness and Denies paresthesias Psychiatric: Psychiatric: Reports no additional psychiatric complaints and Denies confusion Endocrine: Endocrine: Reports no additional endocrine complaints, Denies cold intol
[2022-04-04 09:50] VITALS: BP 143/76; PULSE 66; RESP 18; TEMP 36.6; O2SAT 97
== END 2022-04-04 09:50 | disposition home or self-care (01) ==
PROVIDERS: Emergency Provider Emergency Medicine
DX: K40.90 Unilateral inguinal hernia, without obstruction or gangrene, not specified as recurrent (principal); K21.9 Gastro-esophageal reflux disease without esophagitis; E78.5 Hyperlipidemia, unspecified; I10 Essential (primary) hypertension; F17.290 Nicotine dependence, other tobacco product, uncomplicated
CPT/HCPCS: 99281

== ENCOUNTER 2022-12-06 14:20 | Emergency (ER) | payer OTHER, SELFPAY ==
--- NOTE | ~2022-12-06 | CT_ITS ---
EXAMINATION: CT thoracic lumbar wo con DATE: 12/06/2022 15:09 INDICATION: GLF Thurs morning, sharp pains throughout since . TECHNIQUE: Computed tomography (CT) of the thoracic and lumbar spine was performed without intravenou s contrast. The dose-length product was 1429.05 mGy-cm. COMPARISON: None FINDINGS: THORACIC SPINE: Osteopenia. Vertebral body alignment intact. Vertebral body heights preserved. Mild, likely degenerat gina anterior wedge deformity at T8. No disc space narrowing. No traumatic malalignment or fracture. S enescent lung change. Atherosclerotic calcifications. Cholecystectomy. Heavy coronary artery calcific ation. Left renal scar. LUMBAR SPINE: Osteopenia. 5 nonrib-bearing lumbar-type vertebral bodies. Pedicles intact. Normal vertebral body ali gnment. Vertebral body heights preserved. Concave osteoporotic type superior endplate deformity at L3 . Mild multilevel degenerative disc disease and facet arthropathy IMPRESSION: No acute fracture or traumatic malalignment detected in the thoracic or lumbar spine Reviewed, dictated and finalized at location K.
[2022-12-06 14:20] VITALS: BP 143/83; PULSE 83; RESP 18; TEMP 36.7; O2SAT 99
[2022-12-06] MEDS: KETOROLAC 30 MG/ML VIAL (*BKC) IM (15:09)
--- NOTE | 2022-12-06 15:17 | ED.BACK ---
HPI - Back Pain/Injury General Chief Complaint: Back Pain/Injury Stated Complaint: back pain/fall Time Seen by Provider: 12/06/22 14:37 Source: patient Mode of arrival: ambulatory Limitations: no limitations History of Present Illness HPI Narrative: this is a 77-year-old gentleman that presents after he had a fall on and heard his mid and lower back, the patient states is a chronic drinker and was at the local bar this afternoon and was drinking, did come in because he was having increasing mid lower back pain with no radiation of his pain no saddle paresthesias no radiation down his legs it is tender in the thoracic and lumbar spine no dysuria no other injuries no fever chills no neck pain. MD elicited complaint: back pain and back injury Pertinent past history: prior back pain Onset (ago): day(s) Severity: moderate Pain scale (0-10): 6 Quality: aching Location: lumbar spine and thoracic spine Radiation: none Exacerbating factors: movement Relieving factors: immobilization Related Data Home Medications Medication Instructions Recorded Confirmed lisinopril 10 mg tablet 5 mg PO DAILY 11/21/22 12/06/22 omeprazole 20 mg PO BID 11/21/22 12/06/22 potassium chloride 10 mEq 20 meq PO DAILY 11/21/22 12/06/22 tablet,extended release simvastatin 10 mg tablet 20 mg PO HS 11/21/22 12/06/22 Allergies Allergy/AdvReac Type Severity Reaction Status Date / Time No Known Allergies Allergy Verified 11/21/22 09:42 Review of Systems Review of Systems: All systems reviewed & are unremarkable except as noted in HPI and below PMFSH Past Medical History Medical History Dysuria GERD (gastroesophageal reflux disease) Hordeolum externum left lower eyelid Hyperlipidemia Hypertension PTSD (post-traumatic stress disorder) Surgical History Surgical History History of radiofrequency ablation procedure for cardiac arrhythmia Hx of cholecystectomy Social History Social History Smoking status: Current every day smoker Tobacco type: pipe Alcohol intake: current Alcohol use details: drinks red wine daily Substance use: never Substance use type: does not use Gender identity (if verbalized by the patient): Male Exam Const: General: healthy appearing Nutritional Appearance: well nourished Limitations: no limitations HENMT: Head: normal to inspection Eyes: Conjunctivae: conjunctivae normal Pupils: Equal, round and reactive pupils present EOM: EOMs intact bilaterally Neck: Neck: normal visual inspection Chest: Chest palpation & inspection: normal inspection of the chest Resp: Effort & Inspection: normal respiratory effort Auscultation: clear to auscultation bilaterally Cardio: Rate: regular rate Rhythm: regular rhythm GI: Auscultation: normal bowel sounds Rectal Exam: normal sphincter tone : General: Yes bladder normal to palpation Urinary Catheter: Urinary Catheter: patent and draining Back/Spine/Pelvis: Back: no CVA tenderness Skin: General skin exam: normal color Rashes: no rashes Wounds: no wounds Neuro: General: patient oriented x3, moves all extremities and no focal motor deficits Cranial nerves: Yes Nystagmus not present Speech: normal speech Extrem: Other: patient with mid to lower back pain with palpation Course Course Emergency Course: patient while at rest states that his pain is more manageable, patient did receive a dose of 30mg IM Toradol reassessment of patient pain improved, CT scan thoracic and lumbar scan spine reviewed with patient Vital Signs Vital signs: Vital Signs Temperature 36.7 C 12/06/22 14:20 Pulse Rate 83 12/06/22 14:20 Respiratory Rate 18 12/06/22 14:20 Blood Pressure 143/83 H 12/06/22 14:20 Pulse Oximetry 99 12/06/22 14:20 Oxygen Delivery Room Air 12/06/22 14:20
[2022-12-06 15:47] VITALS: BP 140/84; PULSE 83; RESP 18; TEMP 36.6; O2SAT 97
== END 2022-12-06 16:00 | disposition home or self-care (01) ==
PROVIDERS: Emergency Provider Emergency Medicine
DX: S39.012A Strain of muscle, fascia and tendon of lower back, initial encounter (principal); E78.5 Hyperlipidemia, unspecified; I10 Essential (primary) hypertension; F17.290 Nicotine dependence, other tobacco product, uncomplicated; W19.XXXA Unspecified fall, initial encounter
CPT/HCPCS: 72128; 72131; 96372; 99284; J1885

== ENCOUNTER 2023-01-13 17:00 | Emergency (ER) | payer OTHER, SELFPAY ==
[2023-01-13] VITALS (17 sets, daily range): BP systolic 123–154; BP diastolic 66–82; PULSE 59–69; RESP 9–20; TEMP 36.4–36.8; O2SAT 97–99
--- NOTE | ~2023-01-13 | XR_ITS ---
EXAMINATION: XR chest 1V portable DATE: 01/13/2023 18:26 INDICATION: Chronic dysphagia. Esophageal stricture. TECHNIQUE: frontal view of the chest was obtained. COMPARISON: Chest radiograph dated 01/18/[address] dated 01/24/2022 FINDINGS: The lungs are clear with no focal airspace opacities, pulmonary edema, pleural effusion or pneumothor ax. Heart size is normal with prominent left paracardial fat pad which extends over the costophrenic angle. Visualized bones and soft tissues are unremarkable. IMPRESSION: 1. No acute cardiopulmonary disease. Reviewed, dictated and finalized at location A.
--- NOTE | 2023-01-13 17:52 | ED.ABDPAIN ---
HPI - Abdominal Pain General Chief Complaint: Abdominal Pain Stated Complaint: gastric reflux, back pain Time Seen by Provider: 01/13/23 17:32 Source: patient History of Present Illness HPI narrative: 77-year-old white male with long history of esophageal reflux, resulting in esophageal strictures, reports he gets dilated about every 3-4 years. For the past 4 or 5 days he is again having a lot of reflux symptoms, is able to swallow fluids, but when he eats it is a fact if food gets hung up, he has a hard time getting it down and sometimes he has taken this but it back up. Denies any fever or chills, denies shortness of breath, chest pain, palpitations, near-syncope or syncope. Denies dysuria urgency or frequency. He gets his esophageal stricture dilated at [facility] in [place] Related Data Home Medications Medication Instructions Recorded Confirmed lisinopril 10 mg tablet 5 mg PO DAILY 11/21/22 01/13/23 omeprazole 20 mg PO BID 11/21/22 01/13/23 potassium chloride 10 mEq 20 meq PO DAILY 11/21/22 01/13/23 tablet,extended release metoprolol tartrate 25 mg tablet 12.5 mg PO BID 01/13/23 01/13/23 simvastatin 10 mg tablet 10 mg PO HS 01/13/23 01/13/23 Allergies Allergy/AdvReac Type Severity Reaction Status Date / Time No Known Allergies Allergy Verified 01/13/23 17:10 Review of Systems Review of Systems: All systems reviewed & are unremarkable except as noted in HPI and below (IN HPI) [facility] Past Medical History Medical History Dysuria GERD (gastroesophageal reflux disease) Hordeolum externum left lower eyelid Hyperlipidemia Hypertension PTSD (post-traumatic stress disorder) Surgical History Surgical History History of radiofrequency ablation procedure for cardiac arrhythmia Hx of cholecystectomy Social History Social History Smoking status: Current every day smoker Tobacco type: pipe Alcohol intake: current Alcohol use details: drinks red wine daily Substance use: never Substance use type: does not use Gender identity (if verbalized by the patient): Male Exam Narrative: pleasant, well-oriented, no acute distress, Const: General: cooperative HENMT: Head: normal to inspection Face and sinus: normal facial exam Mouth: Yes moist mucous membranes abnormal ( dry) Throat: posterior oropharynx normal Eyes: General: appearance normal, both eyes and all related structures Alignment and Position: alignment normal and position normal Periorbital: periorbital findings normal Eyelids: eyelids normal Conjunctivae: conjunctivae normal Sclera: sclerae normal Cornea: corneas normal Pupils: Equal, round and reactive pupils present EOM: EOMs intact bilaterally Neck: Neck: normal visual inspection and full ROM Chest: Chest palpation & inspection: normal inspection of the chest Resp: Effort & Inspection: normal respiratory effort and able to speak in complete sentences Cardio: Jugular venous distension: no JVD Rate: regular rate Rhythm: regular rhythm GI: GI Palp: No abdominal tenderness (RUQ chronic tenderness, patient states no change), Yes Soft to palpation and Yes No hepatosplenomegaly present Back/Spine/Pelvis: Back: no CVA tenderness and back tenderness ( diffuse without point tenderness, step-off, deformity, or crepitance) Skin: General skin exam: normal color Lesions: no lesions Trauma: other ( abrasion to the left voodoo area) Neuro: General: patient oriented x3 and Normal light touch and pain sensation Cranial nerves: Yes CN's II-XII intact bilaterally, Yes facial sensation intact/muscles of mastication intact, Yes Equal, round and reactive pupils present, Yes Normal accommodation reflex present, Yes Bilaterally intact EOM present and Yes Nystagmus not present Cognition (Neuro): normal cognition Spee
[2023-01-13 18:21] LABS: Basophils Absolute Auto 0.03 K/mm3 (0.00-0.10); Basophils Percent Auto 0.4 % (0.0-1.0); Eosinophils Absolute Auto 0.39 K/mm3 (0.02-0.50); Eosinophils Percent Auto 5.5 % (1.0-6.0); Hemoglobin 13.4 g/dL (12.4-15.3); Immature Granulocyte Absolute 0.02 K/mm3 (0.00-0.00); Immature Granulocyte Percent A 0.3 % (0.0-0.0); Lymphocytes Absolute Auto 1.84 K/mm3 (1.10-4.50); Lymphocytes Percent Auto 25.8 % (18.0-42.0); Mean Corpuscular HGB Conc 36.2 g/dL (32.0-36.0); Mean Corpuscular Hemoglobin 36.1 pg (27.0-31.0); Mean Corpuscular Volume 99.7 fL (78.0-102.0); Mean Platelet Volume 9.6 fl (8.7-11.0); Monocytes Absolute Auto 0.75 K/mm3 (0.10-0.90); Monocytes Percent Auto 10.5 % (2.0-11.0); Neutrophils Absolute Auto 4.1 K/mm3 (1.7-7.2); Neutrophils Percent Auto 57.5 % (50.0-70.0); Platelet Count Result 174 K/mm3 (150-420); Red Blood Count 3.71 M/mm3 (4.70-6.10); Red Cell Distribution Width 11.7 % (11.6-14.4); White Blood Count 7.1 K/mm3 (4.8-10.8)
[2023-01-13] MEDS: LACTATED RINGERS 2,000 ML 999 ML IV CONT (18:22)
[2023-01-13] MEDS: ONDANSETRON INJ 4 MG/2 ML VIAL IV PUSH (18:24)
[2023-01-13] MEDS: PANTOPRAZOLE SODIUM IV 40 MG VIAL IV PUSH (18:26)
[2023-01-13] MEDS: MAG HYDROX/ALUMINUM HYD/SIMETH 30 ML, PHENobarb/HYOSCY/ATROPINE/SCOP 32.4 MG, LIDOCAINE... PO (18:27)
[2023-01-13 18:41] LABS: Troponin I < 4.0 ng/L (0.00-60.4)
[2023-01-13 18:54] LABS: Alanine Aminotransferase 49 U/L (16-63); Albumin Level 3.6 g/dL (3.4-5.0); Alkaline Phosphatase 87 U/L (46-116); Anion Gap 9 mmol/L (8-16); Aspartate Amino Transferase 41 U/L (15-37); Bilirubin,Total 0.6 mg/dL (0.00-1.00); Blood Urea Nitrogen 11 mg/dL (7-18); Calcium 8.9 mg/dL (8.5-10.1); Carbon Dioxide 28 mmol/L (21-32); Chloride 96 mmol/L (98-108); Estimated CRCL calculation 53 ml/min; Estimated Glomerular Filt Rate > 60; Glucose 90 mg/dL (70-99); Lipase 25 U/L (16-77); Osmolality Calculated 275 mOsm/kg (285-295); Potassium 3.7 mmol/L (3.5-5.1); Sodium 133 mmol/L (136-145); Total Protein 6.6 g/dL (6.4-8.2)
--- NOTE | 2023-01-13 19:10 | PC.NURSE ---
PT IS LYING ON STRETCHER WITH IVF INFUSING WITHOUT DIFFICULTY. REPORT TO KENYA CASTANEDA NOTED.
[2023-01-13 20:21] LABS: Appearance Urine Clear (Clear); Bilirubin Urine Negative (Negative); Blood Urine Negative (Negative); Color Urine Light Yellow (Yellow); Glucose Urine UA Negative (Negative); Ketones Urine Negative (Negative); Nitrate Urine Negative (Negative); Protein Urine Negative (Negative); Urobilinogen Urine 0.2 mg/dL (0.2-1.0)
[2023-01-13 20:24] LABS: Troponin I 4.3 ng/L (0.00-60.4)
[2023-01-13 20:28] LABS: Add Urine Microscopic? NO; Leukocyte Esterase Ur Negative LEU/UL (Negative)
== END 2023-01-13 22:05 | disposition home or self-care (01) ==
PROVIDERS: Emergency Provider Emergency Medicine
DX: R13.10 Dysphagia, unspecified (principal); E86.0 Dehydration; E78.5 Hyperlipidemia, unspecified; I10 Essential (primary) hypertension; F17.290 Nicotine dependence, other tobacco product, uncomplicated
CPT/HCPCS: 36415; 71045; 80053; 81003; 83690; 84484; 85025; 96361; 96374; 96375; 99284; A9270; C9113; J2405; J7120

== ENCOUNTER 2023-08-18 13:08 | Emergency (ER) | payer OTHER, SELFPAY ==
--- NOTE | ~2023-08-18 | XR_ITS ---
EXAMINATION: XR chest 1V portable INDICATION: Chest pain TECHNIQUE: Portable AP chest at 1339 hours COMPARISON: 01/13/2023 FINDINGS: The lungs are free of acute opacities. No pleural effusion or pneumothorax. The cardiomedia stinal silhouette is normal. IMPRESSION: 1. No acute cardiopulmonary abnormality. Reviewed, dictated and finalized at location L. JANITOR
[2023-08-18 13:08] VITALS: BP 149/74; PULSE 90; RESP 20; TEMP 36.6; O2SAT 97
[2023-08-18 13:17] VITALS: BP 149/74; PULSE 90; RESP 20; TEMP 36.6; O2SAT 97
--- NOTE | 2023-08-18 13:18 | ED.GENADULT ---
HPI - General Adult General Chief complaint: Unspecified Stated complaint: pain on swallowing Time Seen by Provider: 08/18/23 13:17 History of Present Illness HPI narrative: this is a 78-year-old male presenting with chief difficulty swallowing. Patient has history of esophageal stricture requiring dilation. Patient says that today while he was eating lunch he started to have burning chest pain and nausea and vomiting. He is unable to keep down liquids or solids. Patient relates this pain to multiple episodes in the past where he has required EGD and dilation. The most recent of which was in December of this year. Patient denies headache, shortness of breath, abdominal pain syncope or lightheadedness. no diaphoresis or relationship to exertion. Related Data Home Medications Medication Instructions Recorded Confirmed lisinopril 10 mg tablet 10 mg PO DAILY 11/21/22 08/18/23 omeprazole 40 mg PO BID 11/21/22 08/18/23 potassium chloride 10 mEq 10 meq PO DAILY 11/21/22 08/18/23 tablet,extended release metoprolol tartrate 25 mg tablet 12.5 mg PO BID 01/13/23 08/18/23 simvastatin 10 mg tablet 10 mg PO HS 01/13/23 08/18/23 Allergies Allergy/AdvReac Type Severity Reaction Status Date / Time No Known Allergies Allergy Verified 08/18/23 13:12 [facility] Past Medical History Medical History Dysuria GERD (gastroesophageal reflux disease) Hordeolum externum left lower eyelid Hyperlipidemia Hypertension PTSD (post-traumatic stress disorder) Surgical History Surgical History History of radiofrequency ablation procedure for cardiac arrhythmia Hx of cholecystectomy Social History Social History Smoking status: Current every day smoker Tobacco type: pipe Alcohol intake: current Alcohol use details: drinks red wine daily Substance use: never Substance use type: does not use Gender identity (if verbalized by the patient): Male Exam Narrative: APPEARANCE: No apparent distress. Head: atraumatic. EYES: EOMI, NOSE: Atraumatic NECK: Trachea midline RESPIRATORY: No increased rate of breathing, CTAB CARDIOVASCULAR: RRR, ABDOMINAL: Non-distended , soft no guarding rebound MUSCULOSKELETAl: No obvious deformities NEURO: Alert. Moving 4/4 extremities SKIN:: Warm, dry. Normal color PSYCHIATRIC: Normal affect Course Vital Signs Vital signs: Vital Signs Temperature 97.8 F 08/18/23 13:08 Pulse Rate 90 08/18/23 13:08 Respiratory Rate 20 08/18/23 13:08 Blood Pressure 149/74 H 08/18/23 13:08 Pulse Oximetry 97 08/18/23 13:08 Oxygen Delivery Room Air 08/18/23 13:08 Temperature 97.8 F 08/18/23 13:17 Pulse Rate 90 08/18/23 13:17 Respiratory Rate 20 08/18/23 13:17 Blood Pressure 149/74 H 08/18/23 13:17 Pulse Oximetry 97 08/18/23 13:17 Oxygen Delivery Room Air 08/18/23 13:17 Medical Decision Making MDM Narrative Medical decision making narrative: -Course: 78-year-old male history of reflux and esophageal stricture presenting with burning chest pain. Patient given antacids and a GI cocktail with complete resolution of his symptoms. Laboratory studies, EKG and troponins within normal limits. Patient passed p.o. challenge here. Patient has been instructed to call his GI physician Dr. Multani at the CT schedule follow-up. Patient given return precautions. -DDX includes but is not limited to: esophageal stricture, food impaction , reflux, ACS, gastritis -Co-morbidities complicating care: history of esophageal stricture, PTSD -Social determinants of health: retired, former mental health worker, former -External Chart Review: review of ER records from December of 2022 for identical presentation. -Independent interpretation of studies: CBC normal. Metabolic panel within acceptable limits. High sensitivity
--- NOTE | 2023-08-18 13:33 | ECG_ITS ---
Measurements Intervals [place] Rate: 82 P: 38 RI: 184 QRS: 34 QRSD: 80 T: 60 QT: 378 QTc: 443 Interpretive Statements SINUS RHYTHM LOW QRS VOLTAGE IN PRECORDIAL LEADS [QRS DEFLECTION < 1.0 mV IN CHEST LEADS] NONSPECIFIC ST AND T WAVE ABNORMALITY COMPARED TO ECG 01/24/2022 14:06:14 NO SIGNIFICANT CHANGES Electronically Signed On 08-18-2023 15:04:52 HEEL SEAT POUNDER by Marco Antonio Mayes M.D.
[2023-08-18 13:43] LABS: Basophils Absolute Auto 0.05 K/mm3 (0.00-0.10); Basophils Percent Auto 0.7 % (0.0-1.0); Eosinophils Percent Auto 2.8 % (1.0-6.0); Hematocrit 39.8 % (37.0-46.0); Hemoglobin 13.5 g/dL (12.4-15.3); Immature Granulocyte Absolute 0.02 K/mm3 (0.00-0.00); Immature Granulocyte Percent A 0.3 % (0.0-0.0); Lymphocytes Absolute Auto 1.82 K/mm3 (1.10-4.50); Lymphocytes Percent Auto 25.6 % (18.0-42.0); Mean Corpuscular HGB Conc 33.9 g/dL (32.0-36.0); Mean Corpuscular Hemoglobin 35.2 pg (27.0-31.0); Mean Corpuscular Volume 103.9 fL (78.0-102.0); Mean Platelet Volume 9.3 fl (8.7-11.0); Monocytes Absolute Auto 0.78 K/mm3 (0.10-0.90); Neutrophils Absolute Auto 4.2 K/mm3 (1.7-7.2); Neutrophils Percent Auto 59.6 % (50.0-70.0); Platelet Count Result 161 K/mm3 (150-420); Red Blood Count 3.83 M/mm3 (4.70-6.10); Red Cell Distribution Width 11.9 % (11.6-14.4); White Blood Count 7.1 K/mm3 (4.8-10.8)
[2023-08-18] MEDS: SODIUM CHLORIDE 0.9% IV 2,000 ML 999 ML IV CONT (13:48)
[2023-08-18] MEDS: FAMOTIDINE 20 MG/2 ML VIAL IV PUSH (13:50)
[2023-08-18] MEDS: ONDANSETRON INJ 4 MG/2 ML VIAL IV PUSH (13:50)
[2023-08-18 13:59] LABS: Alanine Aminotransferase 48 U/L (16-63); Albumin Level 3.6 g/dL (3.4-5.0); Alkaline Phosphatase 69 U/L (46-116); Anion Gap 7 mmol/L (8-16); Aspartate Amino Transferase 42 U/L (15-37); Bilirubin,Total 0.9 mg/dL (0.00-1.00); Blood Urea Nitrogen 10 mg/dL (7-18); Calcium 8.9 mg/dL (8.5-10.1); Carbon Dioxide 29 mmol/L (21-32); Chloride 101 mmol/L (98-108); Estimated Glomerular Filt Rate > 60; Glucose 101 mg/dL (70-99); Lipase 38 U/L (16-77); Osmolality Calculated 283 mOsm/kg (285-295); Potassium 4.1 mmol/L (3.5-5.1); Sodium 137 mmol/L (136-145); Total Protein 6.5 g/dL (6.4-8.2)
[2023-08-18 14:02] LABS: Lactic Acid Reflex 1.3 mmol/L (0.4-2.0)
[2023-08-18 14:14] LABS: Troponin I < 4.0 ng/L (0.00-60.4)
[2023-08-18] MEDS: MAG HYDROX/AL HYDROX/SIMETH 30 ML UDC PO (14:16)
--- NOTE | 2023-08-18 14:46 | PC.NURSE ---
po challenge completed. pt is tolerating water, was able to tolerate maalox without difficulty. pt reports he is feeling better. will continue to monitor.
[2023-08-18 15:00] VITALS: BP 116/68; PULSE 72; RESP 18; O2SAT 98
--- NOTE | 2023-08-18 15:12 | PC.NURSE ---
pt reports he feels much better. pt tolerated po challenge well. no emesis noted throughout ed visit.
== END 2023-08-18 15:00 | disposition home or self-care (01) ==
PROVIDERS: Emergency Provider Emergency Medicine
DX: K21.9 Gastro-esophageal reflux disease without esophagitis (principal); E78.5 Hyperlipidemia, unspecified; I10 Essential (primary) hypertension; F17.210 Nicotine dependence, cigarettes, uncomplicated; Z79.899 Other long term (current) drug therapy
CPT/HCPCS: 36415; 71045; 80053; 83605; 83690; 84484; 85025; 93005; 96361; 96374; 96375; 99284; A9270; J2405; J7030

== ENCOUNTER 2023-10-27 14:59 | Emergency (ER) | payer OTHER, SELFPAY ==
[2023-10-27 15:02] VITALS: BP 105/72; PULSE 72; RESP 16; TEMP 36.4; O2SAT 93
--- NOTE | 2023-10-27 15:05 | ECG_ITS ---
Measurements Intervals [place] Rate: 66 P: 86 MO: 209 QRS: -25 QRSD: 81 T: 72 QT: 414 QTc: 437 Interpretive Statements SINUS RHYTHM INFERIOR MYOCARDIAL INFARCTION , PROBABLY OLD [40+ ms Q WAVE AND/OR ST/T ABNORMALITY IN II/aVF] COMPARED TO ECG 08/18/2023 13:45:11 MYOCARDIAL INFARCT FINDING NOW PRESENT Electronically Signed On 10-28-2023 16:16:35 TRAFFIC CLERK by Marco Antonio Mayes M.D.
--- NOTE | 2023-10-27 15:07 | ED.NAVMDI ---
HPI - Nausea/Vomiting/Diarrhea General Chief complaint: Nausea/Vomiting/Diarrhea Stated complaint: nausea Time Seen by Provider: 10/27/23 15:00 Source: patient Mode of arrival: ambulatory Limitations: no limitations History of Present Illness HPI Narrative: patient is a 78-year-old male with chronic on and off nausea since childhood. He is here with nausea. There has never been a diagnosis. He also has some dizziness at times but not at this time. No other complaints or pain. MD elicited complaint: nausea Onset (ago): day(s) (1) Associated nausea: Yes Associated abdominal pain: No Location of pain: none Exacerbating factors: none Relieving factors: none Associated symptoms: denies other symptoms Related Data Home Medications Medication Instructions Recorded Confirmed lisinopril 10 mg tablet 10 mg PO DAILY 11/21/22 10/27/23 omeprazole 40 mg PO BID 11/21/22 10/27/23 potassium chloride 10 mEq 10 meq PO DAILY 11/21/22 10/27/23 tablet,extended release metoprolol tartrate 25 mg tablet 12.5 mg PO BID 01/13/23 10/27/23 simvastatin 10 mg tablet 10 mg PO HS 01/13/23 10/27/23 Allergies Allergy/AdvReac Type Severity Reaction Status Date / Time No Known Allergies Allergy Verified 10/27/23 15:28 [facility] Past Medical History Medical History Dysuria GERD (gastroesophageal reflux disease) Hordeolum externum left lower eyelid Hyperlipidemia Hypertension PTSD (post-traumatic stress disorder) Surgical History Surgical History History of radiofrequency ablation procedure for cardiac arrhythmia Hx of cholecystectomy Social History Social History Smoking status: Current every day smoker Tobacco type: pipe Alcohol intake: current Alcohol use details: drinks red wine daily Substance use: never Substance use type: does not use Gender identity (if verbalized by the patient): Male Course Vital Signs Vital signs: Vital Signs Temperature 36.4 C L 10/27/23 15:02 Pulse Rate 72 10/27/23 15:02 Respiratory Rate 16 10/27/23 15:02 Blood Pressure 105/72 10/27/23 15:02 Pulse Oximetry 93 02/27/24 15:02 Oxygen Delivery Room Air 10/27/23 15:02 Temperature 36.4 C L 10/27/23 15:02 Pulse Rate 72 10/27/23 15:02 Respiratory Rate 16 10/27/23 15:02 Blood Pressure 105/72 10/27/23 15:02 Pulse Oximetry 93 10/27/23 15:02 Oxygen Delivery Room Air 10/27/23 15:02 MDM - Nausea/Vomiting/Diarrhea MDM Narrative Medical decision making narrative: Patient is a 78-year-old male with acute on chronic nausea. We will give him some Zofran at this time and meclizine. I will do a small workup to make sure no other acute findings and otherwise send him home with some Zofran. He needs to talk to his primary doctor about this chronic nausea and further evaluation. He will need some routine outpatient evaluation. Further discussion with the patient shows that he is on an antibiotic for UTI and some Pyridium. Patient has UTI and associated nausea. I suggested him to finish all his antibiotics as planned with his primary doctor already. Further I have given some Zofran at the pharmacy. All in all, he needs to talk to his primary doctor about this chronic nausea and make sure he is up-to-date on GI screening. We gave him 25 mEq of potassium. Lab Data Attestation: I reviewed the patient's lab results. 10/27/23 15:30 10/27/23 15:30 Labs: Lab Results 10/27/23 10/27/23 Range/Units 15:30 16:00 WBC 7.5 (4.8-10.8) K/mm3 RBC 3.58 L (4.70-6.10) M/mm3 Hgb 12.9 (12.4-15.3) g/dL Hct 36.0 L (37.0-46.0) % MCV 100.6 (78.0-102.0) fL MCH 36.0 H (27.0-31.0) pg MCHC 35.8 (32.0-36.0) g/dL RDW 12.1 (11.6-14.4) % Plt Count 170 (150-420) K/mm3 MPV 8.8 (8.7-11.0) fl Immature Gran
[2023-10-27] MEDS: ONDANSETRON HCL ODT 4 MG TABLET PO (15:13)
[2023-10-27] MEDS: MECLIZINE HCL 25 MG TABLET PO (15:13)
[2023-10-27 15:30] VITALS: BP 104/76; PULSE 68; RESP 17; O2SAT 94
[2023-10-27 15:32] LABS: Basophils Absolute Auto 0.03 K/mm3 (0.00-0.10); Basophils Percent Auto 0.4 % (0.0-1.0); Eosinophils Absolute Auto 0.25 K/mm3 (0.02-0.50); Eosinophils Percent Auto 3.3 % (1.0-6.0); Hemoglobin 12.9 g/dL (12.4-15.3); Immature Granulocyte Absolute 0.02 K/mm3 (0.00-0.00); Immature Granulocyte Percent A 0.3 % (0.0-0.0); Lymphocytes Absolute Auto 1.88 K/mm3 (1.10-4.50); Mean Corpuscular HGB Conc 35.8 g/dL (32.0-36.0); Mean Corpuscular Volume 100.6 fL (78.0-102.0); Mean Platelet Volume 8.8 fl (8.7-11.0); Monocytes Absolute Auto 0.78 K/mm3 (0.10-0.90); Monocytes Percent Auto 10.4 % (2.0-11.0); Neutrophils Absolute Auto 4.6 K/mm3 (1.7-7.2); Neutrophils Percent Auto 60.6 % (50.0-70.0); Platelet Count Result 170 K/mm3 (150-420); Red Blood Count 3.58 M/mm3 (4.70-6.10); Red Cell Distribution Width 12.1 % (11.6-14.4); White Blood Count 7.5 K/mm3 (4.8-10.8)
[2023-10-27 15:50] LABS: Alanine Aminotransferase 68 U/L (16-63); Albumin Level 3.7 g/dL (3.4-5.0); Alkaline Phosphatase 61 U/L (46-116); Anion Gap 11 mmol/L (8-16); Aspartate Amino Transferase 63 U/L (15-37); Blood Urea Nitrogen 10 mg/dL (7-18); Calcium 8.6 mg/dL (8.5-10.1); Carbon Dioxide 26 mmol/L (21-32); Chloride 96 mmol/L (98-108); Estimated Glomerular Filt Rate > 60; Glucose 104 mg/dL (70-99); Osmolality Calculated 275 mOsm/kg (285-295); Potassium 3.3 mmol/L (3.5-5.1); Sodium 133 mmol/L (136-145); Total Protein 6.7 g/dL (6.4-8.2); Troponin I 4.7 ng/L (0.00-60.4)
[2023-10-27 16:00] VITALS: BP 113/52; PULSE 66; RESP 17; O2SAT 94
[2023-10-27] MEDS: POTASSIUM BICARBONATE 25 MEQ TABEF PO (16:09)
[2023-10-27 16:13] LABS: Appearance Urine Clear (Clear); Bilirubin Urine Negative (Negative); Blood Urine Negative (Negative); Glucose Urine UA 1+ (Negative); Ketones Urine 1+ (Negative); Leukocyte Esterase Ur 1+ LEU/UL (Negative); Nitrate Urine Positive (Negative); Protein Urine 3+ (Negative); Urobilinogen Urine >=8.0 mg/dL (0.2-1.0); pH Urine 6.5 (5.0-8.0)
[2023-10-27 16:18] LABS: Add Urine Microscopic? YES; Bacteria Urine Trace /hpf; Color Urine Dark Orange (Yellow); Mucus Urine Few /lpf; RBC Urine None seen /hpf (0-2); Squamous Epithelial Cell Urine Rare /hpf (Few); WBC Urine None seen /hpf (0-3)
[2023-10-27 16:30] VITALS: BP 110/60; PULSE 64; RESP 17; O2SAT 94
--- NOTE | 2023-10-27 16:30 | PC.NURSE ---
On 10/27/23, the student, Kanwal Farr, provided care and completed [facility] documentation on this patient. I have reviewed the student's documentation and agree with the findings.
[2023-10-27 16:35] VITALS: BP 110/60; PULSE 64; RESP 17; TEMP 36.4; O2SAT 94
--- NOTE | 2023-10-29 12:35 | PC.NURSE ---
final urine culture report reviewed. No Growth . no change in plan of care
== END 2023-10-27 16:35 | disposition home or self-care (01) ==
PROVIDERS: Emergency Provider Emergency Medicine
DX: N39.0 Urinary tract infection, site not specified (principal); R11.0 Nausea; E78.5 Hyperlipidemia, unspecified; I10 Essential (primary) hypertension; F17.200 Nicotine dependence, unspecified, uncomplicated
CPT/HCPCS: 36415; 80053; 81001; 84484; 85025; 87086; 93005; 99284; A9270

== ENCOUNTER 2023-11-06 15:16 | Emergency (ER) | payer OTHER, SELFPAY ==
--- NOTE | ~2023-11-06 | XR_ITS ---
EXAMINATION: XR chest 2V DATE: 11/06/2023 15:47 INDICATION: Nausea. Dysphagia. TECHNIQUE: Frontal and lateral views of the chest were obtained. COMPARISON: Chest single view 08/18/2023, chest CT 01/24/2022 FINDINGS: There is no pneumonia, pleural effusion, or pneumothorax. The heart size is normal. There a re prominent paracardial fat pads. Surgical clips in the right upper quadrant are likely from cholecy stectomy. IMPRESSION: 1. No acute cardiopulmonary disease. Reviewed, dictated and finalized at location E. CE CLEANER
[2023-11-06 15:16] VITALS: BP 127/67; PULSE 73; RESP 18; TEMP 36.1; O2SAT 95
--- NOTE | 2023-11-06 15:26 | ED.NAVMDI ---
HPI - Nausea/Vomiting/Diarrhea General Chief complaint: Nausea/Vomiting/Diarrhea Stated complaint: nausea Time Seen by Provider: 11/06/23 15:23 History of Present Illness HPI Narrative: Patient is a 78-year-old male with history of acid reflux, hypertension, follows with the ID here with nausea. He states he was out eating a burger and a glass of wine when he began feeling nauseous. He states he has been suffering with a nausea on and off for about 2 weeks, it seems to worsen with food. He notes that this has been an ongoing issue for him in the past. He follows with the ID, has had chronic dysphagia requiring multiple prior esophageal dilations in the past. He notes former endoscopies have told him he has GERD/acid reflux. He has been compliant with his BID omeprazole, and he did take it today. Has not seen his GI doctor at the ID for quite some time. He denies any associated chest pain or abdominal pain. He has not vomited. He is a daily wine drinker, had a drink of wine with lunch. He states that his bowel movements have been normal, takes Metamucil. Denies cardiac history. No fever or chills. Related Data Home Medications Medication Instructions Recorded Confirmed lisinopril 10 mg tablet 10 mg PO DAILY 11/21/22 10/27/23 omeprazole 40 mg PO BID 11/21/22 10/27/23 potassium chloride 10 mEq 10 meq PO DAILY 11/21/22 10/27/23 tablet,extended release metoprolol tartrate 25 mg tablet 12.5 mg PO BID 01/13/23 10/27/23 simvastatin 10 mg tablet 10 mg PO HS 01/13/23 10/27/23 Allergies Allergy/AdvReac Type Severity Reaction Status Date / Time No Known Allergies Allergy Verified 10/27/23 15:28 Review of Systems Review of Systems: All systems reviewed & are unremarkable except as noted in HPI and below PMFSH Past Medical History Medical History Dysuria GERD (gastroesophageal reflux disease) Hordeolum externum left lower eyelid Hyperlipidemia Hypertension PTSD (post-traumatic stress disorder) Surgical History Surgical History History of radiofrequency ablation procedure for cardiac arrhythmia Hx of cholecystectomy Social History Social History Smoking status: Current every day smoker Tobacco type: pipe Alcohol intake: current Alcohol use details: drinks red wine daily Substance use: never Substance use type: does not use Gender identity (if verbalized by the patient): Male Exam Narrative: GENERAL: Well-appearing, well-nourished, and in no acute distress. HEAD: Normocephalic, atraumatic. EYES: PERRLA and EOMI. ENT: Nares clear. Mucous membranes moist. NECK: Supple. CHEST: Clear to auscultation. No respiratory distress. HEART: Regular rate and rhythm. Normal peripheral pulses. ABDOMEN: Soft, nontender, nondistended. EXTREMITIES: Normal range of motion. No edema. SKIN: Warm, dry, no rash. NEURO: No focal deficits. Alert and oriented x3. PSYCH: Normal mood and affect. Course Course Emergency Course: Chart review performed. Patient here for abdominal pain and nausea after eating. Triage vitals normal. He was seen here multiple times for similar with negative workups including troponins, has been discharged with outpatient follow up. Patient seen evaluated, nontoxic appearing. Abdomen is soft, nontender. Suspect nausea most is likely related to his chronic reflux and esophageal strictures. Given his age, and risk factors, will do screening cardiac workup in the absence of chest pain. Zofran and GI cocktail ordered. Lab work and imaging reviewed. Grossly unremarkable, similar to his baseline labs here in the past. Symptoms resolved with zofran and GI cocktail. Advised he needs to follow up with his PCP and GI doctor at the [facility]. He has an appointment this month with them. Zofran sent to his pharmacy. The results of pertinent diagnostic
--- NOTE | 2023-11-06 15:38 | ECG_ITS ---
Measurements Intervals [place] Rate: 69 P: 87 DE: 208 QRS: -27 QRSD: 81 T: 59 QT: 402 QTc: 433 Interpretive Statements SINUS RHYTHM CONSIDER INFERIOR INFARCT, AGE INDETERMINATE NONSPECIFIC ST-T WAVE ABNORMALITY- ANT/HIGH LAT LEADS BASELINE ARTIFACT- II, AVR, AVF ABNORMAL ECG COMPARED TO ECG 10/27/2023 15:15:26 ST-T WAVE ABNORMALITY NOW PRESENT Electronically Signed On 11-06-2023 15:57:19 CONVENTIONAL UNDERWRITER by Royce Oliver D.O.
[2023-11-06] MEDS: ONDANSETRON HCL ODT 4 MG TABLET PO (15:53)
[2023-11-06] MEDS: MAG HYDROX/ALUMINUM HYD/SIMETH 30 ML, PHENobarb/HYOSCY/ATROPINE/SCOP 32.4 MG, LIDOCAINE... PO (15:53)
[2023-11-06 16:06] LABS: Basophils Absolute Auto 0.03 K/mm3 (0.00-0.10); Basophils Percent Auto 0.4 % (0.0-1.0); Eosinophils Absolute Auto 0.28 K/mm3 (0.02-0.50); Hematocrit 33.7 % (37.0-46.0); Hemoglobin 12.2 g/dL (12.4-15.3); Immature Granulocyte Absolute 0.02 K/mm3 (0.00-0.00); Immature Granulocyte Percent A 0.3 % (0.0-0.0); Lymphocytes Absolute Auto 2.04 K/mm3 (1.10-4.50); Mean Corpuscular HGB Conc 36.2 g/dL (32.0-36.0); Mean Corpuscular Hemoglobin 36.2 pg (27.0-31.0); Mean Platelet Volume 9.1 fl (8.7-11.0); Monocytes Absolute Auto 0.71 K/mm3 (0.10-0.90); Monocytes Percent Auto 10.1 % (2.0-11.0); Neutrophils Percent Auto 56.2 % (50.0-70.0); Platelet Count Result 150 K/mm3 (150-420); Red Blood Count 3.37 M/mm3 (4.70-6.10); Red Cell Distribution Width 11.9 % (11.6-14.4)
[2023-11-06 16:24] LABS: Alanine Aminotransferase 42 U/L (16-63); Albumin Level 3.4 g/dL (3.4-5.0); Alkaline Phosphatase 53 U/L (46-116); Anion Gap 10 mmol/L (8-16); Aspartate Amino Transferase 33 U/L (15-37); Bilirubin,Total 0.8 mg/dL (0.00-1.00); Blood Urea Nitrogen 10 mg/dL (7-18); Calcium 8.5 mg/dL (8.5-10.1); Carbon Dioxide 25 mmol/L (21-32); Chloride 97 mmol/L (98-108); Estimated Glomerular Filt Rate > 60; Glucose 95 mg/dL (70-99); Lipase 31 U/L (16-77); Osmolality Calculated 273 mOsm/kg (285-295); Potassium 3.4 mmol/L (3.5-5.1); Sodium 132 mmol/L (136-145); Total Protein 6.1 g/dL (6.4-8.2)
[2023-11-06 16:33] LABS: Troponin I 4.2 ng/L (0.00-60.4)
[2023-11-06 16:43] VITALS: BP 134/78; PULSE 74; RESP 18; TEMP 36.7; O2SAT 98
== END 2023-11-06 16:43 | disposition home or self-care (01) ==
PROVIDERS: Emergency Provider Student in an Organized Health Care Education/Training Program
DX: K21.9 Gastro-esophageal reflux disease without esophagitis (principal); I10 Essential (primary) hypertension; E78.5 Hyperlipidemia, unspecified; F17.290 Nicotine dependence, other tobacco product, uncomplicated
CPT/HCPCS: 36415; 71046; 80053; 83690; 84484; 85025; 93005; 99284; A9270

== ENCOUNTER 2023-12-25 12:51 | Emergency (ER) | payer OTHER, SELFPAY ==
--- NOTE | ~2023-12-25 | XR_ITS ---
Portable chest x-ray Comparison: 11/06/2023 Clinical History: Food bolus Findings: Lungs are clear, without focal consolidation or pleural effusion. Cardiomediastinal silho uette is stable. Bones and soft tissues are unremarkable. Impression: Normal chest. Reviewed, dictated and finalized at [facility]. Impression: Normal chest.
--- NOTE | ~2023-12-25 | XR_ITS ---
EXAMINATION: XR abdomen obstructive series DATE: 12/25/2023 13:18 INDICATION: Dysphagia. TECHNIQUE: Upright and supine views of the abdomen on 3 radiographs were obtained. COMPARISON: None. FINDINGS: There are no dilated loops of bowel. There is a small volume of stool in the colon. Surgica l clips in the right upper quadrant are likely from cholecystectomy. No free intraperitoneal gas. IMPRESSION: 1. Normal bowel gas pattern. Reviewed, dictated and finalized at location [facility].
[2023-12-25 12:53] VITALS: BP 132/80; PULSE 94; RESP 16; TEMP 36.6; O2SAT 96
--- NOTE | 2023-12-25 13:01 | ED.ABDPAIN ---
HPI - Abdominal Pain General Chief Complaint: Abdominal Pain Stated Complaint: GI problems Time Seen by Provider: 12/25/23 12:58 Source: patient Mode of arrival: ambulatory Limitations: no limitations History of Present Illness HPI narrative: Patient is a 78-year-old male with recurrent GERD issues. He is here with the same symptoms he always gets and no new changes. He is having difficulty swallowing and has a known hiatal hernia. No abdominal pain per se. No nausea vomiting or diarrhea. Pertinent past history: other ( Recurrent GERD; patient taking PPI daily) Onset (ago): hour(s) Location: none Severity: mild Quality: fullness Radiation: none Migration to: no migration Exacerbating factors: nothing Relieving factors: nothing Context: confirms other ( GERD issues) Associated symptoms: denies other symptoms Related Data Home Medications Medication Instructions Recorded Confirmed lisinopril 10 mg tablet 10 mg PO DAILY 11/21/22 10/27/23 omeprazole 40 mg PO BID 11/21/22 10/27/23 potassium chloride 10 mEq 10 meq PO DAILY 11/21/22 10/27/23 tablet,extended release metoprolol tartrate 25 mg tablet 12.5 mg PO BID 01/13/23 10/27/23 simvastatin 10 mg tablet 10 mg PO HS 01/13/23 10/27/23 Allergies Allergy/AdvReac Type Severity Reaction Status Date / Time No Known Allergies Allergy Verified 10/27/23 15:28 Review of Systems Review of Systems: All systems reviewed & are unremarkable except as noted in HPI and below Constitutional: Constitutional: Reports no additional constitutional complaints Eyes: Eyes: Reports no additional eye complaints ENT: Reports system reviewed and no additional complaints, except as documented Cardiovascular: Cardiovascular: Reports no additional cardiovascular complaints Respiratory: Respiratory: Reports no additional respiratory complaints Gastrointestinal: Gastrointestinal: Reports no additional gastrointestinal complaints Genitourinary: Genitourinary: Reports no additional male genitourinary complaints Musculoskeletal: Musculoskeletal: Reports no additional musculoskeletal complaints Integumentary/Breasts: Skin/Breast: Reports system reviewed and no additional complaints, except as docu Neurologic: Reports system reviewed and no additional complaints, except as documented Psychiatric: Psychiatric: Reports no additional psychiatric complaints Endocrine: Endocrine: Reports no additional endocrine complaints Hematologic/Lymphatic: Hematologic/Lymphatic: Reports no additional hematologic/lymphatic complaints Allergic/Immunologic: Allergic/Immunologic: Reports no additional allergic/immunologic complaints [facility] Past Medical History Medical History Dysuria GERD (gastroesophageal reflux disease) Hordeolum externum left lower eyelid Hyperlipidemia Hypertension PTSD (post-traumatic stress disorder) Surgical History Surgical History History of radiofrequency ablation procedure for cardiac arrhythmia Hx of cholecystectomy Social History Social History Smoking status: Current every day smoker Tobacco type: pipe Alcohol intake: current Alcohol use details: drinks red wine daily Substance use: never Substance use type: does not use Gender identity (if verbalized by the patient): Male Exam Const: General: healthy appearing Nutritional Appearance: well nourished Orientation/consciousness: patient oriented x3 HENMT: Head: normal to inspection Ears: external ears normal Face/Nose/Sinus: Normal external nose present Eyes: Conjunctivae: conjunctivae normal Pupils: Equal, round and reactive pupils present EOM: EOMs intact bilaterally Neck: Neck: normal visual inspection Chest: Chest palpation & inspection: normal inspection of the chest Resp: Effort & Inspection: normal respiratory effor
[2023-12-25] MEDS: MAG HYDROX/ALUMINUM HYD/SIMETH 30 ML, PHENobarb/HYOSCY/ATROPINE/SCOP 32.4 MG, LIDOCAINE... PO (13:42)
[2023-12-25 13:53] VITALS: BP 123/71; PULSE 74; RESP 16; O2SAT 95
== END 2023-12-25 13:56 | disposition home or self-care (01) ==
LOC: CHSED 13:58
PROVIDERS: Emergency Provider Emergency Medicine
DX: K21.9 Gastro-esophageal reflux disease without esophagitis (principal); R13.10 Dysphagia, unspecified; E78.5 Hyperlipidemia, unspecified; I10 Essential (primary) hypertension
CPT/HCPCS: 71045; 74019; 99283; A9270

== ENCOUNTER 2024-01-01 14:27 | Emergency (ER) | payer OTHER, SELFPAY ==
--- NOTE | 2024-01-01 14:31 | ED.ABDPAIN ---
HPI - Abdominal Pain General Chief Complaint: Nausea/Vomiting/Diarrhea Stated Complaint: nausea Time Seen by Provider: 01/01/24 14:30 Source: patient Mode of arrival: ambulatory Limitations: no limitations History of Present Illness HPI narrative: Patient is a 78-year-old male with recurrent nausea issues. He comes to the ER weakly for the same complaint. He drinks wine daily and has the same complaint. He has been given many medications but GI cocktails work the best and he is satisfied at the end results. he also has some distal tip penis discomfort which in the past has worked for anti inflammation cream. He has a urology appointment for this complaint next week. This is also a chronic complaint. No other complaints. No chest pain or shortness of breath. No abdominal pain. Pertinent past history: gastritis ( drinks wine multiple times a day) and other ( Chronic nausea) Onset (ago): year(s) ( many) Pain Consistency: intermittent Location: none Severity: moderate Pain scale (0-10): 5 Quality: other ( nausea) Radiation: none Migration to: no migration Exacerbating factors: other ( worse with his alcohol consumption) Relieving factors: other ( GI cocktail) Associated symptoms: nausea Related Data Home Medications Medication Instructions Recorded Confirmed omeprazole 40 mg PO BID 11/21/22 01/01/24 potassium chloride 10 mEq 10 meq PO DAILY 11/21/22 01/01/24 tablet,extended release metoprolol tartrate 25 mg tablet 12.5 mg PO BID 01/13/23 01/01/24 simvastatin 10 mg tablet 10 mg PO HS 01/13/23 01/01/24 Allergies Allergy/AdvReac Type Severity Reaction Status Date / Time No Known Allergies Allergy Verified 10/27/23 15:28 Review of Systems Review of Systems: All systems reviewed & are unremarkable except as noted in HPI and below Constitutional: Constitutional: Reports no additional constitutional complaints Eyes: Eyes: Reports no additional eye complaints ENT: Reports system reviewed and no additional complaints, except as documented Cardiovascular: Cardiovascular: Reports no additional cardiovascular complaints Respiratory: Respiratory: Reports no additional respiratory complaints Gastrointestinal: Gastrointestinal: Reports no additional gastrointestinal complaints Genitourinary: Genitourinary: Reports no additional male genitourinary complaints Musculoskeletal: Musculoskeletal: Reports no additional musculoskeletal complaints Integumentary/Breasts: Skin/Breast: Reports system reviewed and no additional complaints, except as docu Neurologic: Reports system reviewed and no additional complaints, except as documented Psychiatric: Psychiatric: Reports no additional psychiatric complaints Endocrine: Endocrine: Reports no additional endocrine complaints Hematologic/Lymphatic: Hematologic/Lymphatic: Reports no additional hematologic/lymphatic complaints Allergic/Immunologic: Allergic/Immunologic: Reports no additional allergic/immunologic complaints PMFSH Past Medical History Medical History Dysuria GERD (gastroesophageal reflux disease) Hordeolum externum left lower eyelid Hyperlipidemia Hypertension PTSD (post-traumatic stress disorder) Surgical History Surgical History History of radiofrequency ablation procedure for cardiac arrhythmia Hx of cholecystectomy Social History Social History Smoking status: Current every day smoker Tobacco type: pipe Alcohol intake: current Alcohol use details: drinks red wine daily Substance use: never Substance use type: does not use Gender identity (if verbalized by the patient): Male Exam Const: General: healthy appearing Nutritional Appearance: well nourished Orientation/consciousness: patient oriented x3 HENMT: Head: normal to inspection Ears: external ears normal Fa
[2024-01-01 14:34] VITALS: BP 117/67; PULSE 93; RESP 18; TEMP 36.4; O2SAT 93
[2024-01-01] MEDS: MAG HYDROX/ALUMINUM HYD/SIMETH 30 ML, PHENobarb/HYOSCY/ATROPINE/SCOP 32.4 MG, LIDOCAINE... PO (14:48)
[2024-01-01] MEDS: ONDANSETRON HCL ODT 4 MG TABLET PO (14:48)
--- NOTE | 2024-01-01 14:54 | PC.NURSE ---
resting on stretcher. took medications without difficulty.
--- NOTE | 2024-01-01 15:15 | PC.NURSE ---
patient reports that he is feeling better. ER Provider notified
== END 2024-01-01 15:24 | disposition home or self-care (01) ==
LOC: CHSED 15:00
PROVIDERS: Emergency Provider Emergency Medicine
DX: K29.20 Alcoholic gastritis without bleeding (principal); I10 Essential (primary) hypertension; E78.5 Hyperlipidemia, unspecified; K21.9 Gastro-esophageal reflux disease without esophagitis; F43.10 Post-traumatic stress disorder, unspecified; F17.290 Nicotine dependence, other tobacco product, uncomplicated
CPT/HCPCS: 99283; A9270

== ENCOUNTER 2024-01-23 14:07 | Emergency (ER) | payer OTHER, SELFPAY ==
--- NOTE | 2024-01-23 14:13 | ED.NAVMDI ---
HPI - Nausea/Vomiting/Diarrhea General Chief complaint: Nausea/Vomiting/Diarrhea Stated complaint: n/v Time Seen by Provider: 01/23/24 14:12 Source: patient Mode of arrival: ambulatory Limitations: no limitations History of Present Illness HPI Narrative: this is a 78-year-old male who presents with nausea and vomiting patient states that this is been off and on for years and has not seen his primary for this since he goes to the [place]. Has a history of hypertension hyperlipidemia and reflux disease, patient denies abdominal pain no fever chills no flank pain no dysuria no chest pain or shortness of breath. MD elicited complaint: nausea and vomiting Description of vomiting: watery Associated nausea: Yes Associated abdominal pain: No Location of pain: none Pain consistency: intermittent Severity: mild Related Data Home Medications Medication Instructions Recorded Confirmed omeprazole 40 mg PO BID 11/21/22 01/01/24 potassium chloride 10 mEq 10 meq PO DAILY 11/21/22 01/01/24 tablet,extended release metoprolol tartrate 25 mg tablet 12.5 mg PO BID 01/13/23 01/01/24 simvastatin 10 mg tablet 10 mg PO HS 01/13/23 01/01/24 Allergies Allergy/AdvReac Type Severity Reaction Status Date / Time No Known Allergies Allergy Verified 10/27/23 15:28 Review of Systems Review of Systems: All systems reviewed & are unremarkable except as noted in HPI and below PMFSH Past Medical History Medical History Dysuria GERD (gastroesophageal reflux disease) Hordeolum externum left lower eyelid Hyperlipidemia Hypertension PTSD (post-traumatic stress disorder) Surgical History Surgical History History of radiofrequency ablation procedure for cardiac arrhythmia Hx of cholecystectomy Social History Social History Smoking status: Current every day smoker Tobacco type: pipe Alcohol intake: current Alcohol use details: drinks red wine daily Substance use: never Substance use type: does not use Gender identity (if verbalized by the patient): Male Exam Const: General: healthy appearing Nutritional Appearance: well nourished Orientation/consciousness: patient oriented x3 Limitations: no limitations Neck: Neck: normal visual inspection Chest: Chest palpation & inspection: normal inspection of the chest Resp: Effort & Inspection: normal respiratory effort Auscultation: clear to auscultation bilaterally Cardio: Rate: regular rate Rhythm: regular rhythm GI: GI Palp: Yes Soft to palpation Auscultation: normal bowel sounds : General: Yes bladder normal to palpation Neuro: General: patient oriented x3, moves all extremities, no meningeal signs and no focal motor deficits Course Course Emergency Course: Patient otherwise comfortable he is currently not having any nausea or vomiting, mild nausea relieved with Zofran ODT. Vital Signs Vital signs: Vital Signs Temperature 36.9 C 01/23/24 14:15 Pulse Rate 65 01/23/24 14:15 Respiratory Rate 20 01/23/24 14:15 Blood Pressure 90/65 L 01/23/24 14:15 Pulse Oximetry 99 01/23/24 14:15 Oxygen Delivery Room Air 01/23/24 14:15 Temperature 36.9 C 01/23/24 14:15 Pulse Rate 65 01/23/24 14:15 Respiratory Rate 20 01/23/24 14:15 Blood Pressure 90/65 L 01/23/24 14:15 Pulse Oximetry 99 01/23/24 14:15 Oxygen Delivery Room Air 01/23/24 14:15 Critical Care Time Critical Care Time Critical Care Time: No Discharge Plan Discharge Clinical Impression: Nausea & vomiting Qualifiers: Vomiting type: unspecified Qualified Code(s): R11.2 - Nausea with vomiting, unspecified Patient Disposition: Home, Self-Care Condition: Stable Instructions: Antibiotic Form, Acute Nausea and Vomiting (ED) Additional Instructions: advised take medicine as prescribed and advise
[2024-01-23 14:15] VITALS: BP 90/65; PULSE 65; RESP 20; TEMP 36.9; O2SAT 99
[2024-01-23] MEDS: ONDANSETRON HCL ODT 4 MG TABLET PO (14:23)
[2024-01-23 14:30] VITALS: BP 94/66; PULSE 64; RESP 20; TEMP 36.9; O2SAT 99
== END 2024-01-23 14:30 | disposition home or self-care (01) ==
LOC: CHSED 14:21
PROVIDERS: Emergency Provider Emergency Medicine
DX: R11.2 Nausea with vomiting, unspecified (principal); I10 Essential (primary) hypertension; E78.5 Hyperlipidemia, unspecified; K21.9 Gastro-esophageal reflux disease without esophagitis; F17.290 Nicotine dependence, other tobacco product, uncomplicated
CPT/HCPCS: 99283; A9270

== ENCOUNTER 2024-01-27 10:36 | Emergency (ER) | payer OTHER, SELFPAY ==
[2024-01-27] VITALS (19 sets, daily range): BP systolic 105–146; BP diastolic 54–73; PULSE 59–67; RESP 18–20; TEMP 36.1; O2SAT 94–98
--- NOTE | 2024-01-27 11:08 | ED.GENADULT ---
HPI - General Adult General Chief complaint: Abdominal Pain Stated complaint: acid reflux Source: patient Mode of arrival: ambulatory Limitations: no limitations History of Present Illness HPI narrative: 78-year-old male with a history of smoking, daily red wine use,hypertension, dyslipidemia, PTSD, GERD presents to the ER with -- nausea with 1 episode of vomiting 2 days ago. The vomitus is acidic. Patient has ongoing nausea. No hematemesis or melena. Patient has had these symptoms for a long time. Patient is not scheduled to see GI specialist for upper GI endoscopy. No abdominal pain. -- Patient has burning on the tip of his penis. He has dysuria without any hematuria. No fever or chills. The patient has a good urinary stream without any dribbling. No fever or chills. Onset (ago): month(s) Location: abdomen Relieving factors: none Exacerbating factors: none Associated symptoms: denies other symptoms Treatments prior to arrival: none Related Data Home Medications Medication Instructions Recorded Confirmed potassium chloride 10 mEq 10 meq PO DAILY 11/21/22 01/23/24 tablet,extended release metoprolol tartrate 25 mg tablet 12.5 mg PO BID 01/13/23 01/23/24 simvastatin 10 mg tablet 10 mg PO HS 01/13/23 01/23/24 Allergies Allergy/AdvReac Type Severity Reaction Status Date / Time No Known Allergies Allergy Verified 01/23/24 14:18 Review of Systems Review of Systems: All systems reviewed & are unremarkable except as noted in HPI and below Constitutional: Constitutional: Reports as per HPI and Reports no additional constitutional complaints Eyes: Eyes: Reports as per HPI and Reports no additional eye complaints ENT: Reports system reviewed and no additional complaints, except as documented and Reports as per HPI Cardiovascular: Cardiovascular: Reports as per HPI and Reports no additional cardiovascular complaints Respiratory: Respiratory: Reports as per HPI and Reports no additional respiratory complaints Gastrointestinal: Gastrointestinal: Reports as per HPI, Reports no additional gastrointestinal complaints, Reports dyspepsia, Reports heartburn, Reports nausea and Reports vomiting Genitourinary: Genitourinary: Reports no additional male genitourinary complaints, Reports as per HPI and Reports dysuria Musculoskeletal: Musculoskeletal: Reports no additional musculoskeletal complaints and Reports as per HPI Comments: Integumentary/Breasts: Skin/Breast: Reports system reviewed and no additional complaints, except as docu Neurologic: Reports system reviewed and no additional complaints, except as documented and Reports as per HPI Psychiatric: Psychiatric: Reports no additional psychiatric complaints and Reports as per HPI Endocrine: Endocrine: Reports no additional endocrine complaints and Reports as per HPI Hematologic/Lymphatic: Hematologic/Lymphatic: Reports no additional hematologic/lymphatic complaints and Reports as per HPI Allergic/Immunologic: Allergic/Immunologic: Reports no additional allergic/immunologic complaints and Reports as per HPI [facility] Past Medical History Medical History Dysuria GERD (gastroesophageal reflux disease) Hordeolum externum left lower eyelid Hyperlipidemia Hypertension PTSD (post-traumatic stress disorder) Surgical History Surgical History History of radiofrequency ablation procedure for cardiac arrhythmia Hx of cholecystectomy Social History Social History Smoking status: Current every day smoker Tobacco type: pipe Alcohol intake: current Alcohol use details: drinks red wine daily Substance use: never Substance use type: does not use Gender identity (if verbalized by the patient): Male Exam Const: General: cooperative, healthy appearing, comfortable and no acute dis
[2024-01-27 12:13] LABS: Appearance Urine Clear (Clear); Bilirubin Urine Negative (Negative); Blood Urine Negative (Negative); Glucose Urine UA 1+ (Negative); Ketones Urine Trace (Negative); Leukocyte Esterase Ur 1+ LEU/UL (Negative); Nitrate Urine Positive (Negative); Protein Urine 2+ (Negative); Urobilinogen Urine >=8.0 mg/dL (0.2-1.0)
[2024-01-27 12:22] LABS: Add Urine Microscopic? YES; Bacteria Urine Trace /hpf; Color Urine Dark Orange (Yellow); Mucus Urine Moderate /lpf; RBC Urine None seen /hpf (0-2); WBC Urine 0-3 /hpf (0-3)
--- NOTE | 2024-01-30 13:26 | PC.NURSE ---
urine culture reviewed, no growth
== END 2024-01-27 12:43 | disposition home or self-care (01) ==
PROVIDERS: Emergency Provider Internal Medicine Critical Care Medicine
DX: K21.9 Gastro-esophageal reflux disease without esophagitis (principal); R30.0 Dysuria; I10 Essential (primary) hypertension; E78.5 Hyperlipidemia, unspecified; F43.10 Post-traumatic stress disorder, unspecified; F17.290 Nicotine dependence, other tobacco product, uncomplicated
CPT/HCPCS: 81001; 87086; 99283

== ENCOUNTER 2024-02-02 15:26 | Emergency (ER) | payer OTHER, SELFPAY ==
[2024-02-02 15:37] VITALS: BP 103/58; PULSE 81; RESP 20; TEMP 36.3; O2SAT 95
--- NOTE | 2024-02-02 15:42 | ED.GENADULT ---
HPI - General Adult General Chief complaint: Unspecified Stated complaint: acid reflux Source: patient Mode of arrival: ambulatory Limitations: no limitations History of Present Illness HPI narrative: 78 year old male presents to the Emergency Department complaining of chronic nausea. Has been seen here frequently for same and usually comes in for a GI cocktail. He has not followed up with GI at [facility] as instructed. Denies any significant abdominal pain, vomiting, diarrhea or constipation. Patient drinks alcohol daily. Onset (ago): year(s) (chronic) Related Data Home Medications Medication Instructions Recorded Confirmed potassium chloride 10 mEq 10 meq PO DAILY 11/21/22 01/23/24 tablet,extended release metoprolol tartrate 25 mg tablet 12.5 mg PO BID 01/13/23 01/23/24 simvastatin 10 mg tablet 10 mg PO HS 01/13/23 01/23/24 Allergies Allergy/AdvReac Type Severity Reaction Status Date / Time No Known Allergies Allergy Verified 01/23/24 14:18 Review of Systems Review of Systems: All systems reviewed & are unremarkable except as noted in HPI and below Constitutional: Constitutional: Reports as per HPI, Reports anorexia and Reports poor appetite Eyes: Eyes: Reports as per HPI ENT: Reports system reviewed and no additional complaints, except as documented Cardiovascular: Cardiovascular: Reports as per HPI and Denies chest pain Respiratory: Respiratory: Reports as per HPI and Denies dyspnea Gastrointestinal: Gastrointestinal: Reports as per HPI, Reports nausea and Denies vomiting Genitourinary: Genitourinary: Reports no additional male genitourinary complaints, Denies dysuria and Denies urinary frequency Musculoskeletal: Musculoskeletal: Reports no additional musculoskeletal complaints Integumentary/Breasts: Skin/Breast: Reports system reviewed and no additional complaints, except as docu Neurologic: Reports system reviewed and no additional complaints, except as documented Psychiatric: Psychiatric: Reports no additional psychiatric complaints Endocrine: Endocrine: Reports no additional endocrine complaints Hematologic/Lymphatic: Hematologic/Lymphatic: Reports no additional hematologic/lymphatic complaints [facility] Past Medical History Medical History Dysuria GERD (gastroesophageal reflux disease) Hordeolum externum left lower eyelid Hyperlipidemia Hypertension PTSD (post-traumatic stress disorder) Surgical History Surgical History History of radiofrequency ablation procedure for cardiac arrhythmia Hx of cholecystectomy Social History Social History Smoking status: Current every day smoker Tobacco type: pipe Alcohol intake: current Alcohol use details: drinks red wine daily Substance use: never Substance use type: does not use Gender identity (if verbalized by the patient): Male Exam Const: General: cooperative, no acute distress, well developed and alert Orientation/consciousness: patient oriented x3 Limitations: no limitations HENMT: Head: normal to inspection Face/Nose/Sinus: Normal external nose present Face and sinus: normal facial exam Mouth: Yes Normal oral and palatal mucosa present Throat: posterior oropharynx normal Eyes: General: appearance normal, both eyes and all related structures Visual Roberts: normal visual roberts by confrontation Alignment and Position: alignment normal Pupils: Equal, round and reactive pupils present EOM: EOMs intact bilaterally Direct Ophthalmoscopy: no photophobia Neck: Neck: normal visual inspection and supple Thyroid: thyroid normal Chest: Chest palpation & inspection: normal inspection of the chest Resp: Effort & Inspection: normal respiratory effort Auscultation: clear to auscultation bilaterally Cardio: Jugular venous distension: no JVD Rate: regular rate Rhyt
[2024-02-02] MEDS: MAG HYDROX/ALUMINUM HYD/SIMETH 30 ML, PHENobarb/HYOSCY/ATROPINE/SCOP 32.4 MG, LIDOCAINE... PO (16:03)
== END 2024-02-02 16:21 | disposition home or self-care (01) ==
LOC: CHSED 16:07
PROVIDERS: Emergency Provider Emergency Medicine
DX: K29.70 Gastritis, unspecified, without bleeding (principal); R11.0 Nausea; I10 Essential (primary) hypertension; E78.5 Hyperlipidemia, unspecified; K21.9 Gastro-esophageal reflux disease without esophagitis; F43.10 Post-traumatic stress disorder, unspecified; F17.290 Nicotine dependence, other tobacco product, uncomplicated
CPT/HCPCS: 99283; A9270